=== PATIENT | female | born 1990 | race Caucasian/White ===

== ENCOUNTER 2018-05-26 09:48 | Emergency (ER) | payer OTHER ==
[2018-05-26 10:47] LABS: CONTROL LINE UCG INT CTR LINE PRESENT; URINE PREG TEST NEGATIVE (NEGATIVE)
[2018-05-26 10:50] LABS: AMORPHOUS SEDIMENT RFX SMALL (NEGATIVE); KETONE, URINE AUTO RFX NEGATIVE (NEGATIVE); LEUKOCYTE ESTERASE UR AUTO RFX NEGATIVE (NEGATIVE); MUCUS, URINE RFX SMALL (NEGATIVE); NITRITE, URINE AUTO RFX NEGATIVE (NEGATIVE); RBC, URINE AUTO RFX 3 /HPF (0-3); SPECIFIC GRAVITY UR AUTO RFX 1.013 (1.002-1.035); SQUAM EPITHELIAL CELL UR AURFX 2 /HPF (0-6); WBC, URINE AUTO RFX 2 /HPF (0-3)
[2018-05-26] MEDS: NS 1,000 ML IV (11:52)
[2018-05-26] MEDS: ONDANSETRON 4MG/2ML VIAL (J2405) IV (11:52)
[2018-05-26 12:03] LABS: BASO % 0.5 % (0.0-1.0); EOS # 0.3 10^3/uL (0.0-0.50); EOS % 3.4 % (0.0-3.0); HEMATOCRIT 33.3 % (36.0-47.0); HEMOGLOBIN 11.2 g/dl (12.0-15.5); IMMATURE GRANULOCYTE % 0.3 % (0-3.0); LYMPH # 2.4 10^3/uL (1.5-6.5); LYMPH % 31.9 % (24.0-44.0); MEAN CORPUSCULAR HEMOGLOBIN 32.2 pg (27.0-33.0); MEAN CORPUSCULAR HGB CONC 33.6 g/dl (32.0-36.5); MEAN CORPUSCULAR VOLUME 95.7 fl (80.0-96.0); MONO # 0.7 10^3/uL (0.0-0.8); MONO % 8.8 % (0.0-5.0); NEUTROPHILS # 4.1 10^3/uL (1.8-7.7); NEUTROPHILS % 55.1 % (36.0-66.0); PLATELET COUNT, AUTOMATED 256 10^3/uL (150-450); RED BLOOD COUNT 3.48 10^6/uL (4.00-5.40); RED CELL DISTRIBUTION WIDTH 11.5 % (11.5-14.5); WHITE BLOOD COUNT 7.4 10^3/uL (4.0-10.0)
[2018-05-26 12:25] LABS: AMYLASE 55 U/L (25-115); ANION GAP 9 MEQ/L (8-16); BLOOD UREA NITROGEN 12 MG/DL (7-18); CALCIUM LEVEL 8.9 MG/DL (8.5-10.1); CARBON DIOXIDE LEVEL 23 MEQ/L (21-32); CHLORIDE LEVEL 107 MEQ/L (98-107); CREATININE FOR GFR 0.63 MG/DL (0.55-1.30); GLOMERULAR FILTRATION RATE > 60.0 (>60); GLUCOSE, FASTING 79 MG/DL (70-100); LIPASE 90 U/L (73-393); SODIUM LEVEL 139 MEQ/L (136-145)
[2018-05-26] MEDS: METOCLOPRAMIDE INJ 10MG/2ML VIAL (J2765) IV (13:03)
[2018-05-26] MEDS: SODIUM CHLORIDE 0.9% INJ 10 ML SYR IV (14:00)
== END 2018-05-26 14:06 | disposition home or self-care (01) ==
LOC: M ED 09:48
DX: R11.0 Nausea (principal); K58.9 Irritable bowel syndrome, unspecified; J45.909 Unspecified asthma, uncomplicated; R51 Headache; K59.8 Other specified functional intestinal disorders; Z79.899 Other long term (current) drug therapy; Z88.5 Allergy status to narcotic agent; Z91.89 Other specified personal risk factors, not elsewhere classified; Z91.040 Latex allergy status
CPT/HCPCS: J2405

== ENCOUNTER 2019-04-04 21:28 | Outpatient (CLI) | payer OTHER ==
[~2019-04-04] VITALS: Ht 152.4 cm; Wt 56.8 kg
[~2019-04-04 21:28] MED LIST: ATEN25TA PO; BENA25CA4 PO; DULO1CAP6 PO; HYDR50TA70 PO; MECL-86 PO; MELA5TAB20 PO; PROM50TA4 PO; VENTAER INH; VITA500079 PO; ZOFR8TAB22 PO; [UNRECOGNIZED DRUG - OTHER]
[2019-04-04 21:34] VITALS: BP 131/85
[2019-04-04] MEDS ORDERED: PRAZ2CAP PO (22:12)
[2019-04-04] MEDS ORDERED: CYMB1CAP4 PO (22:13)
== END 2019-04-04 23:00 | disposition home or self-care (01) ==
LOC: M LDO 21:28
PROVIDERS: ATTEND Obstetrics & Gynecology
DX: O26.892 Other specified pregnancy related conditions, second trimester (principal); M54.5 Low back pain; Z3A.26 26 weeks gestation of pregnancy

== ENCOUNTER 2019-05-26 20:44 | Outpatient (CLI) | payer OTHER ==
[~2019-05-26 20:44] MED LIST changes: +CYMB1CAP4 PO; +PRAZ2CAP PO
[2019-05-26 21:34] VITALS: BP 104/62
== END 2019-05-26 21:45 | disposition home or self-care (01) ==
LOC: M LDO 20:44
PROVIDERS: ATTEND Obstetrics & Gynecology
DX: O26.893 Other specified pregnancy related conditions, third trimester (principal); Z88.5 Allergy status to narcotic agent; Z91.040 Latex allergy status; Z91.048 Other nonmedicinal substance allergy status; Z3A.34 34 weeks gestation of pregnancy

== ENCOUNTER 2019-06-04 16:32 | Outpatient (CLI) | payer OTHER ==
[~2019-06-04] VITALS: Ht 152.4 cm; Wt 59.0 kg
[2019-06-04 16:43] VITALS: BP 116/75
[2019-06-04] MEDS ORDERED: LR 1,000 ML IV SCH (17:02)
[2019-06-04] MEDS ORDERED: LACTATED RINGER'S 1000 ML IV STA (17:02)
[2019-06-04] MEDS ORDERED: ALIVTAB PO (17:17)
[2019-06-04 17:55] LABS: HEMATOCRIT 32.4 % (36.0-47.0); HEMOGLOBIN 10.7 g/dl (12.0-15.5); MEAN CORPUSCULAR HEMOGLOBIN 31.8 pg (27.0-33.0); MEAN CORPUSCULAR VOLUME 96.1 fl (80.0-96.0); PLATELET COUNT, AUTOMATED 168 10^3/uL (150-450); RED BLOOD COUNT 3.37 10^6/uL (4.00-5.40); WHITE BLOOD COUNT 8.8 10^3/uL (4.0-10.0)
[2019-06-04] MEDS ORDERED: SODIUM CHLORIDE 0.9% INJ 10 ML SYR IV PRN (18:00)
[2019-06-04 18:15] LABS: APPEARANCE, URINE CLOUDY (CLEAR); BACTERIA, URINE AUTO 2+ (NEGATIVE); BILIRUBIN, URINE AUTO NEGATIVE (NEGATIVE); BLOOD, URINE BLOOD 2+ (NEGATIVE); COLOR, URINE YELLOW (YELLOW); GLUCOSE, URINE (UA) AUTO NEGATIVE (NEGATIVE); KETONE, URINE AUTO NEGATIVE (NEGATIVE); LEUKOCYTE ESTERASE, URINE AUTO 3+ (NEGATIVE); MUCUS, URINE SMALL (NEGATIVE); NITRITE, URINE AUTO NEGATIVE (NEGATIVE); PROTEIN, URINE AUTO NEGATIVE (NEGATIVE); RBC, URINE AUTO 12 /HPF (0-3); SPECIFIC GRAVITY URINE AUTO 1.009 (1.002-1.035); SQUAMOUS EPITHELIAL CELL UR AU 7 /HPF (0-6); UROBILINOGEN, URINE AUTO 0.2 mg/dL (0.0-2.0); WBC, URINE AUTO 149 /HPF (0-3)
[2019-06-04] MEDS ORDERED: CYCLOBENZAPRINE 10 MG TAB PO ONE (21:00)
[2019-06-04] MEDS ORDERED: cefTRIAXone SOD 1 GM in D5W MINI-BAG PLUS 50 ML IV ONE (21:00)
--- NOTE | 2019-06-04 21:29 | IPN ---
DATE: 06/04/2019 A 29-year-old 1, para 0 at 35-1/7 weeks gestation, estimated date of confinement (EDC) 07/07/2019, presents by ambulance from [place] for constant lower abdominal pain and pressure. She feels these are contractions that have been occurring all day and have gotten more intense. She denies vaginal bleeding or loss of fluid. She was seen here for the same problem 8 days ago. She has been to at least five different hospitals during the course of this for various problems. She had previously completed a course of steroids within the last 2 weeks. OBJECTIVE: Blood pressure is 116/75, pulse 116, respiratory rate 20, afebrile. She appears mildly uncomfortable. Head and neck exam is normal. Lungs clear. Heart: Regular rate and rhythm. Abdomen: Nontender, gravid, soft. heart tones: Category 1. Contractions: Irregular, mild. Sterile vaginal exam: 1 cm, 50%, -2, anterior, vertex. No supervisor policy change clerks time. ASSESSMENT: A 29-year-old 1 at 35-1/7 weeks gestation with abdominal pain and occasional contractions. The patient is not in active labor. Plan to obtain bedside ultrasound to ensure there is no pathology, such as placental abruption, to account for patient's pain. Otherwise, I believe the pain is just related to pressure from the . There are no further issues. She could then be discharged to followup with her providers.
--- NOTE | 2019-06-04 23:41 | REPVR ---
PROCEDURE INFORMATION: Exam: US , Limited Exam date and time: 06/04/2019 11:03 PM Clinical history: 29 years old, female; Lmp or gestational age (in weeks): 35w2d; Labor and delivery abnormalities; Pre-term labor; Without delivery; ; Additional info: 35 weeks, R/O placetnal abruption TECHNIQUE: Imaging protocol: Real-time ultrasound of the maternal uterus with image documentation. Exam focused on the clinical indication. COMPARISON: No relevant prior studies available. FINDINGS: GESTATION: Gestation: Single intrauterine fetus. Heart rate: heartbeat of 141 beats per minute. Presentation: Cephalic presentation. Placenta: Anterior placenta with no evidence of abruption. Amniotic fluid: Normal MAGDY of 11.3 cm. MATERNAL: Other findings: S/D ratio is 2.6. IMPRESSION: 1. Single live intrauterine fetus in cephalic presentation. 2. Normal MAGDY of 11.3 cm. 3. Anterior placenta with no abruption. Electronically signed by: Bienvenido Walker On 06/04/2019 23:40:40 PM
[2019-06-05] MEDS ORDERED: SODIUM CHLORIDE 0.9% INJ 10 ML SYR IV SCH (09:00)
== END 2019-06-04 23:40 | disposition home or self-care (01) ==
LOC: M LDO 16:32
PROVIDERS: ATTEND Specialist
DX: O26.893 Other specified pregnancy related conditions, third trimester (principal); Z3A.35 35 weeks gestation of pregnancy
CPT/HCPCS: 59025; 76815; 81001; 85027; 87086; 96374; J0696

== ENCOUNTER 2019-06-05 19:02 | Outpatient (CLI) | payer OTHER ==
[~2019-06-05] VITALS: Ht 152.4 cm; Wt 58.9 kg
[~2019-06-05 19:02] MED LIST changes: +ALIVTAB PO
[2019-06-05 19:20] VITALS: BP 116/83
--- NOTE | 2019-06-05 23:25 | IPN ---
DATE: 06/05/2019 Niurka is a 29-year-old 1, para 0 at 35-3/7 weeks gestation, EDC of 07/07/2019. She presents for a report of mucus with a bright red streak of blood in it this afternoon. She denies any painful contractions or leakage of fluid. The fetus has been active. care is obtained in [place], the lives in [place]. Her course had complications related to heart murmur, irritable bowel syndrome (IBS) and with a planned section at 39 weeks. She has previously completed a course of steroids within the last 2 weeks and has been seen in multiple hospitals for multiple complaints. OBJECTIVE Temperature 99.3, pulse 94, respirations 18, BP is 126/86. She is alert and oriented times three. She does not appear to be in any discomfort. heart rate is 150 with moderate variability, positive accelerations, no decelerations. There is occasional contraction on the AFM. Speculum exam demonstrates no active vaginal bleeding. There is no bleeding at the cervical os and no bleeding on the face of the cervix. Sterile vaginal examination: 1, 70, - 3. ASSESSMENT Intrauterine at 35-3/7 weeks. heart rate category one. No vaginal bleeding. PLAN Discharge the patient home. I did review access to care, reviewed danger signs of bleeding during her . I reviewed signs and symptoms of active labor and movement counts and other danger signs. I did answer the patient and her 's questions. They are agreeable to this plan and will be discharged to home.
[2019-06-06] MEDS ORDERED: PERCOCET PO (21:32)
[2019-06-06] MEDS ORDERED: IBUP80TA PO (21:32)
== END 2019-06-05 19:50 | disposition home or self-care (01) ==
LOC: M LDO 19:02
PROVIDERS: ATTEND Advanced Practice Midwife
DX: O36.8130 Decreased fetal movements, third trimester, not applicable or unspecified (principal); Z3A.35 35 weeks gestation of pregnancy

== ENCOUNTER 2019-06-06 04:57 | Inpatient (IN) | payer OTHER ==
[~2019-06-06] VITALS: Ht 149.9 cm; Wt 61.0 kg
[2019-06-06] VITALS (7 sets, daily range): BP systolic 111–126; BP diastolic 68–83
[2019-06-06] MEDS ORDERED: LACTATED RINGER'S 1000 ML IV STA (05:38)
[2019-06-06] MEDS ORDERED: LR 1,000 ML IV SCH ×2 (05:38→08:00)
[2019-06-06] MEDS ORDERED: BICITRA 30ML SOLN UDC As Ordered ONE (05:42)
[2019-06-06] MEDS ORDERED: ceFAZolin 2 GM/D5W 50 ML IV BAG (J0690 PER 500MG) As Ordered ONE (05:42)
[2019-06-06] MEDS ORDERED: BICITRA 30ML SOLN UDC PO ONE (05:45)
[2019-06-06] MEDS ORDERED: ceFAZolin SOD 2 GM in IV 1 EA IV ONE (05:45)
[2019-06-06] MEDS ORDERED: BETAMETHASONE SOLUSPAN 6MG/ML INJ 5ML (J0702) IM ONE (05:45)
[2019-06-06] MEDS ORDERED: BETAMETHASONE SOLUSPAN 6MG/ML INJ 5ML (J0702) As Ordered ONE (05:50)
[2019-06-06] MEDS ORDERED: OXYTOCIN INJ 10 UNITS/ML VIAL (J2590) As Ordered ONE ×2 (06:19→07:00)
[2019-06-06] MEDS ORDERED: KETOROLAC 60 MG/2 ML VIAL (J1885) As Ordered ONE (06:19)
[2019-06-06] MEDS ORDERED: ONDANSETRON 4MG/2ML VIAL (J2405) As Ordered ONE (06:19)
[2019-06-06] MEDS ORDERED: MORPHINE PRES-FREE INJ 10 MG/10 ML VIAL (J2274) As Ordered ONE (06:19)
[2019-06-06] MEDS ORDERED: MIDAZOLAM INJ 2 MG/2 ML VIAL (J2250) As Ordered ONE (06:21)
[2019-06-06] MEDS ORDERED: AZITHROMYCIN INJ 500 MG, VIAL MATE ADAPTER 1 EACH in D5W 250 ML IV STA (06:26)
[2019-06-06] MEDS ORDERED: AZITHROMYCIN INJ 500MG VIAL (J0456) As Ordered ONE (06:28)
[2019-06-06 06:36] LABS: HEMATOCRIT 31.1 % (36.0-47.0); HEMOGLOBIN 9.9 g/dl (12.0-15.5); MEAN CORPUSCULAR HEMOGLOBIN 30.9 pg (27.0-33.0); MEAN CORPUSCULAR HGB CONC 31.8 g/dl (32.0-36.5); MEAN CORPUSCULAR VOLUME 97.2 fl (80.0-96.0); PLATELET COUNT, AUTOMATED 135 10^3/uL (150-450); WHITE BLOOD COUNT 10.1 10^3/uL (4.0-10.0)
[2019-06-06] MEDS ORDERED: NALOXONE INJ 0.4 MG/1 ML VIAL (J2310) IV PRN ×2 (06:50)
[2019-06-06] MEDS ORDERED: NALBUPHINE HCL 10 MG/ML AMP (J2300) IV PRN ×2 (06:50→08:15)
[2019-06-06] MEDS ORDERED: diphenhydrAMINE INJ 50MG/ML VIAL (J1200) IV PRN (06:50)
[2019-06-06] MEDS ORDERED: METOCLOPRAMIDE INJ 10MG/2ML VIAL (J2765) IV PRN (06:50)
[2019-06-06] MEDS ORDERED: ONDANSETRON 4MG/2ML VIAL (J2405) IV PRN ×3 (06:50→08:15)
[2019-06-06] MEDS ORDERED: dexameTHASONE 4 MG/ML 1ML VIAL (J1100) As Ordered ONE (06:54)
[2019-06-06] MEDS ORDERED: ESMOLOL INJ 100MG/10ML VIAL As Ordered ONE (07:14)
[2019-06-06 07:15] LABS: CORD GAS ABE V -7.6; CORD GAS HCO3 V 20.2 MEQ/L; CORD GAS O2 SAT V 43.9 %; CORD GAS PH V 7.224 UNITS; CORD GAS PO2 V 22.7 mmHg; CORD GAS SBC V 17.2 MEQ/L; CORD GAS TCO2 V 21.7 MEQ/L
[2019-06-06 07:17] LABS: CORD GAS ABE A -6.5; CORD GAS HCO3 A 23.2 MEQ/L; CORD GAS O2 SAT A 26.6 %; CORD GAS PCO2 A 65.7 mmHg; CORD GAS PH A 7.165 UNITS; CORD GAS PO2 A 16.4 mmHg; CORD GAS SBC A 17.7 MEQ/L; CORD GAS TCO2 A 25.2 MEQ/L
[2019-06-06 07:21] LABS: AMPHETAMINES URINE REFLEX NEGATIVE (NEGATIVE); BARBITURATES URINE REFLEX NEGATIVE (NEGATIVE); BENZODIAZEPINES URINE REFLEX NEGATIVE (NEGATIVE); CANNABINOIDS URINE REFLEX NEGATIVE (NEGATIVE); COCAINE METABOLITE URINE REFLE NEGATIVE (NEGATIVE); METHADONE URINE REFLEX NEGATIVE (NEGATIVE); OPIATES URINE REFLEX NEGATIVE (NEGATIVE); PHENCYCLIDINE URINE REFLEX NEGATIVE (NEGATIVE)
[2019-06-06] MEDS ORDERED: OXYTOCIN 30 UNITS IN 0.9% NaCl 500ML IV BAG (J2590) As Ordered ONE (07:41)
[2019-06-06] MEDS ORDERED: RHOGAM 300 MCG (1500 IU) INJ (J2790) IM SCH (08:00)
[2019-06-06] MEDS ORDERED: OXYTOCIN DRIP 30 UNITS in IV 1 EA IV SCH (08:00)
[2019-06-06] MEDS ORDERED: PERCOCET 5MG/325MG TAB PO PRN ×2 (08:00→09:00)
[2019-06-06] MEDS ORDERED: MOM 30ML SUSPENSION UDC PO PRN (08:00)
[2019-06-06] MEDS ORDERED: MEASLES,MUMPS,RUBELLA VACCINE INJ (MMR-II) (90707) SC SCH (08:00)
[2019-06-06] MEDS ORDERED: fentaNYL 100 MCG/2 ML INJECTION (J3010) IV PRN (08:15)
[2019-06-06] MEDS ORDERED: KETOROLAC 30 MG/ML VIAL (J1885) IV PRN (08:15)
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
[2019-06-06] MEDS: DOCUSATE SODIUM 100 MG CAP PO SCH ×2 (09:00→20:23)
[2019-06-06] MEDS: PRENATAL VITAMINS CHEWABLE TABLET PO SCH (09:00)
[2019-06-06] MEDS ORDERED: KETOROLAC 30 MG/ML VIAL (J1885) IV SCH (13:00)
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
[2019-06-06] MEDS ORDERED: PERCOCET PO (21:32)
[2019-06-06] MEDS ORDERED: IBUP80TA PO (21:32)
[2019-06-06] MEDS: IBUPROFEN 800 MG TAB PO SCH (22:58)
[2019-06-07 02:00] VITALS: BP 119/77
[2019-06-07 06:00] VITALS: BP 114/75
[2019-06-07] MEDS: IBUPROFEN 800 MG TAB PO SCH (06:27)
--- NOTE | 2019-06-07 07:25 | DS.PDOC ---
Discharge Summary General Date of Admission Jun 06, 2019 at 05:29 Date of Discharge 06/07/2019 Discharge Summary PROCEDURES PERFORMED DURING STAY: Primary section. ADMITTING DIAGNOSES: 1. premature rupture of membranes in labor DISCHARGE DIAGNOSES: 1. Primary section COMPLICATIONS/CHIEF COMPLAINT: LABOR with ruptured membranes and meconium stained fluid HISTORY OF PRESENT ILLNESS: 29 year old G1, unregistered patient. Received care in [place]. Presented via ambulance with reports of SROM @ 35w4d and onset of contractions. Planned performed by Dr Winn. at [place]. HOSPITAL COURSE: [facility]. DISCHARGE MEDICATIONS: Please see below. ALLERGIES: Please see below. PHYSICAL EXAMINATION ON DISCHARGE: VITAL SIGNS: Please see below. GENERAL: NAD. Reports adequate pain management with oral medications HEENT: WNL NECK: Supple CARDIOVASCULAR EXAMINATION: HRR, normotensive RESPIRATORY EXAMINATION: Unlabored, clear ABDOMINAL EXAMINATION: Fundus firm. Dressing intact with scant old drainage. + flatus EXTREMITIES: Equal strength and motion SKIN: Intact NEUROLOGICAL EXAMINATION: Grossly intact PSYCHIATRIC EXAMINATION: Appropriate LABORATORY DATA: Please see below. PROGNOSIS: Good. ACTIVITY: As tolerated. Pelvic rest DIET: As tolerated DISCHARGE PLAN: Home. DISPOSITION: Home. DISCHARGE INSTRUCTIONS: 1. Maintain dressing x 5 days. Pelvic rest. 2. Oral medications as ordered 3. RTO for wound check 2weeks and 6weeks. DISCHARGE CONDITION: Stable Vital Signs/I&Os Vital Signs Date Time Temp Pulse Resp B/P (MAP) Pulse Ox O2 Delivery O2 Flow Rate FiO2 06/07/19 06:00 97.5 96 18 114/75 (88) 98 I&O- Last 24 Hours up to 6 AM 06/07/19 05:59 Intake Total 2300 ml Output Total 3525 ml Balance -1225 ml Discharge Medications Scheduled Diphenhydramine HCl (Benadryl) 25 Mg Cap, 1 CAP PO QPM, (Reported) Duloxetine HCl (Cymbalta) 20 Mg Capsule.dr, 40 MG PO DAILY, (Reported) Duloxetine Hcl (Duloxetine HCl) 60 Mg Cap, 1 CAP PO DAILY, (Reported) Ondansetron (Zofran Odt) 8 Mg Tab, 1 TAB PO TID for nausea/vomiting, (Reported) place on top of the tongue where it will dissolve, then swallow Scheduled PRN Albuterol Sulfate (Ventolin Hfa) 108 Mcg/Act Aer, 2 PUFF INH Q4-6HP PRN for wheezing, (Reported) Ibuprofen (Ibuprofen) 800 Mg Tablet, 800 MG PO Q8H PRN for PAIN Oxycodone/Acetaminophen (Oxycodone-Acetaminophen 5-325) 1 Each Tablet, 1-2 TAB PO Q6HP PRN for MODERATE/SEVERE PAIN (PS 5-10) Miscellaneous Medications Multivit/Iron/FA/K/Herb No.244 (Alive [employer] Mv Tablet) 1 Each Tablet, 1 TAB PO, (Reported) Prazosin Hcl (Prazosin HCl) 2 Mg Capsule, 2 MG PO, (Reported) Allergies Coded Allergies: TAPE (Verified Allergy, Unknown, 06/06/19) latex (Verified Allergy, Unknown, 06/06/19) hydromorphone (Verified Adverse Reaction, Intermediate, projectile vomiting, 06/06/19) Danielle Smith CNM Jun 07, 2019 07:25
[2019-06-07 07:35] LABS: HEMATOCRIT 29.9 % (36.0-47.0); HEMOGLOBIN 9.8 g/dl (12.0-15.5); MEAN CORPUSCULAR HGB CONC 32.8 g/dl (32.0-36.5); MEAN CORPUSCULAR VOLUME 94.6 fl (80.0-96.0); PLATELET COUNT, AUTOMATED 201 10^3/uL (150-450); RED BLOOD COUNT 3.16 10^6/uL (4.00-5.40); WHITE BLOOD COUNT 17.6 10^3/uL (4.0-10.0)
[2019-06-07] MEDS: DOCUSATE SODIUM 100 MG CAP PO SCH (08:21)
[2019-06-07] MEDS: PRENATAL VITAMINS CHEWABLE TABLET PO SCH (08:21)
[2019-06-07] MEDS ORDERED: INFLUENZA QUADRIVALENT PF VACCINE 0.5ML SYRINGE (90686) IM ONE (09:00)
== END 2019-06-07 10:15 | disposition home or self-care (01) | DRG 540 ==
LOC: M LDO 04:57 → M LDI 05:29 → M OBS 09:59
PROVIDERS: ADMIT Advanced Practice Midwife; ATTEND Obstetrics & Gynecology
PROC: 10D00Z1 Extraction of Products of Conception, Low, Open Approach (ICD-10-PCS; principal; 2019-06-06 06:59)
DX: O42.013 Preterm premature rupture of membranes, onset of labor within 24 hours of rupture, third trimester (principal); Z3A.35 35 weeks gestation of pregnancy; O99.344 Other mental disorders complicating childbirth; F43.10 Post-traumatic stress disorder, unspecified; F41.9 Anxiety disorder, unspecified; Z62.810 Personal history of physical and sexual abuse in childhood; Z37.0 Single live birth; O99.02 Anemia complicating childbirth; D50.9 Iron deficiency anemia, unspecified

== ENCOUNTER 2019-10-10 12:51 | Emergency (ER) | payer OTHER ==
[~2019-10-10] VITALS: Ht 152.4 cm; Wt 51.3 kg
[~2019-10-10 12:51] MED LIST changes: +IBUP80TA PO; +PERCOCET PO
[2019-10-10] MEDS ORDERED: ACETAMINOPHEN TAB 650MG DOSE (2X325MG) PO ONE (16:00)
[2019-10-10 16:28] LABS: BASO % 0.3 % (0.0-1.0); EOS # 0.1 10^3/uL (0.0-0.5); EOS % 1.3 % (0.0-3.0); HEMATOCRIT 36.7 % (36.0-47.0); LYMPH # 2.4 10^3/uL (1.5-5.0); LYMPH % 39.1 % (24.0-44.0); MEAN CORPUSCULAR HEMOGLOBIN 32.4 pg (27.0-33.0); MEAN CORPUSCULAR HGB CONC 32.7 g/dl (32.0-36.5); MEAN CORPUSCULAR VOLUME 99.2 fl (80.0-96.0); MONO # 0.4 10^3/uL (0.0-0.8); MONO % 7.2 % (0.0-5.0); NEUTROPHILS # 3.2 10^3/uL (1.5-8.5); NEUTROPHILS % 51.8 % (36.0-66.0); PLATELET COUNT, AUTOMATED 248 10^3/uL (150-450); WHITE BLOOD COUNT 6.1 10^3/uL (4.0-10.0)
[2019-10-10 16:55] LABS: ALBUMIN 4.1 GM/DL (3.2-5.2); ALT/SGPT 52 U/L (12-78); BILIRUBIN,DIRECT < 0.1 MG/DL (0.0-0.2); BILIRUBIN,TOTAL 0.2 MG/DL (0.2-1.0); BLOOD UREA NITROGEN 12 MG/DL (7-18); CALCIUM LEVEL 8.8 MG/DL (8.5-10.1); CARBON DIOXIDE LEVEL 28 MEQ/L (21-32); CHLORIDE LEVEL 106 MEQ/L (98-107); CREATININE FOR GFR 0.58 MG/DL (0.55-1.30); GLOMERULAR FILTRATION RATE > 60.0 (>60); GLUCOSE, FASTING 83 MG/DL (70-100); LIPASE 109 U/L (73-393); SODIUM LEVEL 141 MEQ/L (136-145); TOTAL PROTEIN 7.5 GM/DL (6.4-8.2)
[2019-10-10 18:09] VITALS: BP 120/77
== END 2019-10-10 18:13 | disposition home or self-care (01) ==
LOC: M ED 12:51
DX: R31.29 Other microscopic hematuria (principal); F43.10 Post-traumatic stress disorder, unspecified; F41.9 Anxiety disorder, unspecified; F32.9 Major depressive disorder, single episode, unspecified; K58.9 Irritable bowel syndrome, unspecified; K21.9 Gastro-esophageal reflux disease without esophagitis; Z87.448 Personal history of other diseases of urinary system; Z79.899 Other long term (current) drug therapy; Z91.89 Other specified personal risk factors, not elsewhere classified; Z88.5 Allergy status to narcotic agent; Z91.040 Latex allergy status

== ENCOUNTER → 2019-11-07 | Outpatient (CLI) | payer OTHER, MEDICAID ==
[~2019-11-07] MED LIST changes: +EPIN0.3I11 IM; +ISOVUE-370 76% 100ML VIAL (Q9967) As Ordered ONE; +MIRT1TAB PO; +ONDA8TAB10 PO; +OXYC1TAB23 PO
--- NOTE | 2019-11-07 14:42 | REP ---
CT abdomen and pelvis without contrast: History: Gross hematuria. CT findings: Digital preliminary electronics installer radiograph demonstrates an Kzzbza-C-Zfnl catheter in place via the left subclavian vein, clips in right upper quadrant, and a large calcific opacity overlying the right psoas margin. Axial CT images demonstrate that the lung bases are clear. The liver and the spleen are normal size homogeneous in texture. Gallbladder surgically absent. No adrenal lesion is seen. No abnormalities noted in the pancreas. There is moderate to marked right-sided hydronephrosis due to the presence of a large proximal ureteral stone. This measures nine mm in greatest diameter. There is a tiny intrarenal calculus in the left mid kidney but no left-sided hydronephrosis. There are surgical clips in the right lower quadrant consistent with prior appendectomy. No bladder calculus is seen. No uterine or ovarian abnormality is observed. Small and large intestinal bowel loops are unremarkable. Impression: Large nine mm obstructing calculus in the right proximal ureter with moderate to marked right-sided hydronephrosis. Because of the above findings. The contrast portion of the examination was omitted at my direction. Electronically Signed by Chinedu Art MD 11/07/2019 02:34 P
== END ==
LOC: M RAD 12:46
PROVIDERS: ATTEND Nurse Practitioner Family
DX: R31.0 Gross hematuria (principal); N20.1 Calculus of ureter; N13.30 Unspecified hydronephrosis
CPT/HCPCS: 74176; J1642

== ENCOUNTER → 2019-11-07 | Outpatient (REF) | payer OTHER, MEDICAID ==
[~2019-11-07] MED LIST changes: -ISOVUE-370 76% 100ML VIAL (Q9967) As Ordered ONE
[2019-11-07 15:55] LABS: APPEARANCE, URINE HAZY (CLEAR); BILIRUBIN, URINE AUTO NEGATIVE (NEGATIVE); COLOR, URINE YELLOW (YELLOW); GLUCOSE, URINE (UA) AUTO NEGATIVE (NEGATIVE); KETONE, URINE AUTO NEGATIVE (NEGATIVE); NITRITE, URINE AUTO NEGATIVE (NEGATIVE); PROTEIN, URINE AUTO NEGATIVE (NEGATIVE); SPECIFIC GRAVITY URINE AUTO 1.014 (1.002-1.035); UROBILINOGEN, URINE AUTO 0.2 mg/dL (0.0-2.0)
[2019-11-07 15:56] LABS: BLOOD, URINE BLOOD 1+ (NEGATIVE); LEUKOCYTE ESTERASE, URINE AUTO TRACE (NEGATIVE); RBC, URINE AUTO 2 /HPF (0-3); SQUAMOUS EPITHELIAL CELL UR AU 2 /HPF (0-6); WBC, URINE AUTO 9 /HPF (0-3)
== END ==
LOC: M SMT 13:04
PROVIDERS: ATTEND Nurse Practitioner Family
DX: R31.0 Gross hematuria (principal)

== ENCOUNTER 2019-11-10 13:25 | Day surgery (SDC) | payer MEDICAID, OTHER ==
[~2019-11-10] VITALS: Ht 152.4 cm; Wt 53.6 kg
[~2019-11-10 13:25] MED LIST changes: -EPIN0.3I11 IM; -MIRT1TAB PO; -ONDA8TAB10 PO; -OXYC1TAB23 PO
[2019-11-10] MEDS ORDERED: MIRT1TAB PO (13:32)
[2019-11-10] MEDS ORDERED: EPIN0.3I11 IM (13:32)
[2019-11-10 14:44] LABS: BASO % 0.4 % (0.0-1.0); EOS # 0.1 10^3/uL (0.0-0.5); EOS % 1.3 % (0.0-3.0); HEMATOCRIT 39.6 % (36.0-47.0); LYMPH # 2.1 10^3/uL (1.5-5.0); LYMPH % 27.7 % (24.0-44.0); MEAN CORPUSCULAR HEMOGLOBIN 32.3 pg (27.0-33.0); MEAN CORPUSCULAR HGB CONC 32.8 g/dl (32.0-36.5); MEAN CORPUSCULAR VOLUME 98.3 fl (80.0-96.0); MONO # 0.6 10^3/uL (0.0-0.8); NEUTROPHILS # 4.8 10^3/uL (1.5-8.5); NEUTROPHILS % 62.3 % (36.0-66.0); PLATELET COUNT, AUTOMATED 249 10^3/uL (150-450); RED BLOOD COUNT 4.03 10^6/uL (4.00-5.40); WHITE BLOOD COUNT 7.7 10^3/uL (4.0-10.0)
[2019-11-10 15:09] LABS: ALBUMIN 4.2 GM/DL (3.2-5.2); ALT/SGPT 29 U/L (12-78); BILIRUBIN,DIRECT < 0.1 MG/DL (0.0-0.2); BILIRUBIN,TOTAL 0.3 MG/DL (0.2-1.0); BLOOD UREA NITROGEN 15 MG/DL (7-18); CARBON DIOXIDE LEVEL 24 MEQ/L (21-32); CHLORIDE LEVEL 108 MEQ/L (98-107); CREATININE FOR GFR 0.72 MG/DL (0.55-1.30); GLOMERULAR FILTRATION RATE > 60.0 (>60); GLUCOSE, FASTING 77 MG/DL (70-100); LIPASE 71 U/L (73-393); POTASSIUM SERUM 4.1 MEQ/L (3.5-5.1); SODIUM LEVEL 140 MEQ/L (136-145)
[2019-11-10] MEDS ORDERED: MORPHINE 4 MG/ML 1ML VIAL/SYRINGE (J2270) IV ONE (15:15)
[2019-11-10] MEDS ORDERED: diphenhydrAMINE 25 MG CAP PO ONE (15:15)
[2019-11-10] MEDS ORDERED: ONDANSETRON 4MG/2ML VIAL (J2405) IV ONE (15:45)
[2019-11-10] MEDS ORDERED: ONDANSETRON 4MG/2ML VIAL (J2405) As Ordered ONE ×3 (15:58→19:25)
[2019-11-10] MEDS ORDERED: ONDA8TAB10 PO (16:30)
[2019-11-10] MEDS ORDERED: OXYC1TAB23 PO (16:30)
[2019-11-10] MEDS ORDERED: CONRAY-60 60% 50ML VIAL (Q9961) As Ordered ONE (17:38)
[2019-11-10] MEDS ORDERED: LIDOCAINE 2% 5ML JELLY UROJET As Ordered ONE (17:44)
[2019-11-10] MEDS ORDERED: ceFAZolin 2 GM/D5W 50 ML IV BAG (J0690 PER 500MG) As Ordered ONE (18:06)
[2019-11-10] MEDS ORDERED: propofoL 200 MG/20 ML VIAL As Ordered ONE (18:23)
[2019-11-10] MEDS ORDERED: ROCURONIUM BROMIDE 50 MG/5 ML VIAL As Ordered ONE (18:23)
[2019-11-10] MEDS ORDERED: LIDOCAINE 2% INJ 100 MG/5 ML SDV (FOR ANES.) As Ordered ONE (18:23)
[2019-11-10] MEDS ORDERED: fentaNYL 100 MCG/2 ML INJECTION (J3010) As Ordered ONE ×2 (18:23→18:27)
[2019-11-10] MEDS ORDERED: dexameTHASONE 4 MG/ML 1ML VIAL (J1100) As Ordered ONE (18:23)
[2019-11-10] MEDS ORDERED: MIDAZOLAM INJ 2 MG/2 ML VIAL (J2250) As Ordered ONE (18:23)
[2019-11-10] MEDS ORDERED: SUGAMMADEX SODIUM 500 MG/5 ML VIAL (BRIDION) As Ordered ONE (18:34)
[2019-11-10] MEDS ORDERED: LACRILUBE (AKWA TEARS) OPHTH OINT 3.5 GM As Ordered ONE (18:40)
[2019-11-10] MEDS: oxyCODONE 5MG TAB PO PRN ×2 (19:40→20:17)
[2019-11-10] MEDS: fentaNYL 100 MCG/2 ML INJECTION (J3010) IV PRN ×4 (19:40→20:00)
[2019-11-10] MEDS ORDERED: ONDANSETRON 4MG/2ML VIAL (J2405) IV PRN (19:45)
[2019-11-10] MEDS ORDERED: METOCLOPRAMIDE INJ 10MG/2ML VIAL (J2765) IV PRN (19:45)
[2019-11-10] MEDS ORDERED: LR 1,000 ML IV SCH (19:45)
[2019-11-10] MEDS ORDERED: KETOROLAC 30 MG/ML VIAL (J1885) As Ordered ONE (19:53)
[2019-11-10 20:45] VITALS: BP 135/91
[2019-11-10] MEDS ORDERED: PERCOCET 5MG/325MG TAB PO PRN (20:45)
[2019-11-10 21:15] VITALS: BP 146/91
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
[2019-11-10 21:45] VITALS: BP 135/88
[2019-11-10] MEDS: SODIUM CHLORIDE 0.9% INJ 10 ML SYR IV PRN ×2 (22:05→23:41)
[2019-11-10 22:45] VITALS: BP 121/83
[2019-11-10] MEDS: ONDANSETRON 4MG/2ML VIAL (J2405) IV PRN (23:42)
[2019-11-10 23:45] VITALS: BP 142/91
[2019-11-11 00:45] VITALS: BP 125/82
[2019-11-11 01:45] VITALS: BP 126/89
[2019-11-11] MEDS: SODIUM CHLORIDE 0.9% INJ 10 ML SYR IV PRN ×3 (01:58→09:29)
[2019-11-11] MEDS: METOCLOPRAMIDE INJ 10MG/2ML VIAL (J2765) IV PRN ×2 (01:59→09:28)
[2019-11-11] MEDS: KETOROLAC 30 MG/ML VIAL (J1885) IV PRN ×2 (01:59→08:29)
[2019-11-11 05:10] VITALS: BP 121/86
--- NOTE | 2019-11-11 05:34 | REP ---
Clinical: Obstructive hydronephrosis. Technique: Retrograde pyelogram and stent placement. Technique: Real time intraoperative fluoroscopic imaging. Findings: Multiple images demonstrate moderate hydronephrosis with subsequent right ureteral stent placement in satisfactory position. Total fluoroscopic time 39 seconds. Impression: Moderate right hydronephrosis. Right stent placement. Electronically Signed by [place] MD 11/11/2019 05:25 A
[2019-11-11] MEDS: ONDANSETRON 4MG/2ML VIAL (J2405) IV PRN (06:50)
--- NOTE | 2019-11-11 08:21 | REP ---
REASON: History of right-sided renal calculus. COMPARISON: 11/07/2019. Lung bases are clear and unchanged. Once again, there is a proximal right ureteral calculus unchanged in position and size. Again this measures approximately 9 mm. There is mild resultant hydronephrosis which has actually improved compared to the prior exam. There is an unchanged 2 mm sized left intrarenal calculus not causing obstructive phenomenon. Surgical clips are again see in the right lower quadrant from previous appendectomy status quo. There is no significant changed in the appearance of the bowel loops or their mesenteries. Intra-abdominal organs are unchanged. The pancreas and adrenal glands are unchanged. Surgical clips are again seen in the gallbladder fossa from previous cholecystectomy. There is no changed in the imaged osseous structures. IMPRESSION: Slightly less right-sided hydronephrosis. The examination is otherwise unchanged as describe above. Electronically Signed by Jimmy Berumen DO 11/11/2019 01:30 P
--- NOTE | 2019-11-11 08:26 | REP ---
REASON: Omfsnq-L-Jdrz placement. An Hcjotc-J-Gmng catheter has been placed on the left the tip of which is in the superior vena cava. The lung rainey are clear and the heart is not enlarged. The osseous structures are normal. IMPRESSION: Lzjbaq-E-Ioov catheter as described above. Electronically Signed by Jimmy Berumen DO 11/11/2019 01:31 P
[2019-11-11 08:30] VITALS: BP 116/79
[2019-11-11] MEDS ORDERED: SODIUM CHLORIDE 0.9% INJ 10 ML SYR IV SCH (09:00)
--- NOTE | 2019-11-12 07:46 | RO ---
DATE OF PROCEDURE: 11/10/2019 PREOPERATIVE DIAGNOSIS: 9 mm right mid ureteral stone. POSTOPERATIVE DIAGNOSIS: 9 mm right mid ureteral stone. PROCEDURE: Cystoscopy, right ureteroscopy, right laser lithotripsy and right ureteral stent placement. SURGEON: Dr. Maggie Salazar ANESTHESIA: General. MEDICATIONS: Ancef 2 grams preoperatively. SPECIMEN: Stone fragments. FINDINGS: Small ureteral injury, but retrograde pyelogram was done to shows stenting good place. INDICATIONS FOR PROCEDURE: The patient is a 29-year-old female who was having severe right flank pain and had a CT scan done November 07, 2019 which showed a proximal right ureter ureteral stone measuring 9 mm. She was seen in our office and scheduled for surgery but the pain became unremitting despite pain medication. It was decided to bring her urgently to the operating room for stone management. All options, alternatives, risks and benefits were discussed and informed consent was obtained. The patient understood that we might not be able to get the stone completely and that further surgical procedures may need to be done in the future. PROCEDURE: The patient was brought into the operating room. Sequential compression devices and thromboembolic deterrent stockings (TEDS) were placed and anesthesia was induced. She was then placed in the lithotomy position and she was carefully prepped and draped in usual fashion. Next, a 21-Khmer cystoscope was inserted. The urethra was opened and upon entering the bladder both ureteral orifices were seen. There was no evidence of stones, erythematous patches, lesions or other abnormalities. At this point I attempted to place a right 0.35 guidewire up the right ureteral orifice but the wire would not go past the stone. At this point I put in a open-ended catheter over the wire and placed some contrast and then put a slurry of water and a little bit of lidocaine jelly, I then was able to pass the wire and this was left as a safety wire. Next, a rigid ureteroscope was placed and the stone was seen. It was quite impacted in the ureteral wall but I was able to blast it into small pieces and some of the fragments were removed by basket. There was a slight small ureteral disruption into the wall and fragments seen there, but I was able to place a stent and did another retrograde to make sure that it was in the correct position. The stent had a nice curl in the right upper pole of the kidney and down in the bladder. The patient's bladder was emptied and she was returned to recovery room in stable condition. She shall call the office to have the stent removed in 2 weeks.
== END 2019-11-11 11:15 | disposition home or self-care (01) ==
LOC: M ED 13:25 → M SDC 13:26 → M PED 20:45 → M SDC 11-11 11:15
PROVIDERS: ATTEND Specialist
DX: N20.1 Calculus of ureter (principal); J45.909 Unspecified asthma, uncomplicated; M79.7 Fibromyalgia; F32.9 Major depressive disorder, single episode, unspecified; F41.9 Anxiety disorder, unspecified; F43.10 Post-traumatic stress disorder, unspecified; K58.9 Irritable bowel syndrome, unspecified; K21.9 Gastro-esophageal reflux disease without esophagitis; D50.9 Iron deficiency anemia, unspecified; Z79.899 Other long term (current) drug therapy; Z88.5 Allergy status to narcotic agent; Z91.040 Latex allergy status; Z91.048 Other nonmedicinal substance allergy status
CPT/HCPCS: 36415; 52356; 71045; 74420; 80048; 80076; 81001; 82365; 83690; 84702; 85025; 88300; 96374; 96375; 96376; 99284; C1769; C2617; J0690; J1100; J1642; J1885; J2250; J2270; J2405; J2765; J3010; Q9961

== ENCOUNTER → 2020-01-06 | Outpatient (CLI) | payer OTHER ==
[~2020-01-06] MED LIST changes: +EPIN0.3I11 IM; +MIRT1TAB PO; +ONDA8TAB10 PO; +OXYC1TAB23 PO
--- NOTE | 2020-01-14 10:58 | REP ---
REPEAT DICTATION URINARY TRACT SONOGRAPHY: HISTORY: Kidney stones. History of right ureteral stone removal and stenting October 2019. Stent now removed. Persistent right flank pain. COMPARISON: CT study November 10, 2019. This study is acquired on January 06, 2020 and is presented to me for repeat dictation on January 14, 2020. SONOGRAPHIC FINDINGS: Scanning at the level urinary bladder demonstrates emptying ureteral jet visualization on the left but not the right during approximately 6 minutes of time stamp observation. Visualized bladder maynard are smooth. Renal cortical echogenicity pattern is normal and contours are smooth bilaterally. There is moderate right-sided hydronephrosis. AP dimension of the renal pelvis on the right is 19 mm. The proximal ureter is somewhat dilated to 7 mm. The right proximal ureter is not seen below the level of the lower pole of the right kidney. No intrarenal calculus is observed. The right kidney measures 10.3 x 6.1 x 4.0 cm. Left renal dimensions are 10.6 x 4,8 x 4.8 cm. There is no evidence of hydronephrosis of the left kidney. No mass or cyst is seen on either side. IMPRESSION: Moderate right-sided hydronephrosis and hydroureter. No stones seen. Electronically Signed by Chinedu Art MD 01/14/2020 12:33 P
== END ==
LOC: M RAD 12:58
PROVIDERS: ATTEND Urology
DX: N20.0 Calculus of kidney (principal)

== ENCOUNTER 2020-01-27 12:41 | Outpatient (CLI) | payer OTHER ==
[~2020-01-27 12:41] MED LIST changes: -CVS10CAP8 PO
[2020-01-27 13:13] LABS: HEMATOCRIT 36.5 % (36.0-47.0); HEMOGLOBIN 12.3 g/dl (12.0-15.5); MEAN CORPUSCULAR HEMOGLOBIN 31.9 pg (27.0-33.0); MEAN CORPUSCULAR HGB CONC 33.7 g/dl (32.0-36.5); MEAN CORPUSCULAR VOLUME 94.6 fl (80.0-96.0); PLATELET COUNT, AUTOMATED 261 10^3/uL (150-450); RED BLOOD COUNT 3.86 10^6/uL (4.00-5.40); WHITE BLOOD COUNT 6.5 10^3/uL (4.0-10.0)
[2020-01-27] MEDS ORDERED: SODIUM CHLORIDE 0.9% INJ 10 ML SYR IV PRN (13:30)
[2020-01-28] MEDS ORDERED: SODIUM CHLORIDE 0.9% INJ 10 ML SYR IV SCH (09:00)
== END 2020-01-27 13:15 | disposition home or self-care (01) ==
LOC: M LAB 12:41 → M INFU 12:41
PROVIDERS: ATTEND Nurse Practitioner Family
DX: Z01.818 Encounter for other preprocedural examination (principal); N20.2 Calculus of kidney with calculus of ureter

== ENCOUNTER → 2020-01-27 | Outpatient (CLI) | payer OTHER ==
[~2020-01-27] MED LIST changes: +ALBU83IN NEB; +CVS10CAP8 PO; +FAMO40TA3 PO; +MIRT1TAB16 PO; +MULTCAP PO; +PYRI25TA2 PO; +TOPA50TA8 PO
== END ==
LOC: M LABSMTC 11:29
PROVIDERS: ATTEND Anesthesiology
DX: Z01.818 Encounter for other preprocedural examination (principal); Z11.59 Encounter for screening for other viral diseases
CPT/HCPCS: C9803; U0003

== ENCOUNTER 2020-01-30 10:17 | Day surgery (SDC) | payer OTHER ==
[~2020-01-30] VITALS: Ht 152.4 cm; Wt 54.8 kg
[~2020-01-30 10:17] MED LIST changes: +LIDOCAINE 1% MDV 20ML VIAL SQ PRN
[2020-01-30] MEDS ORDERED: LR 1,000 ML IV ONE (10:45)
[2020-01-30] MEDS ORDERED: ceFAZolin SOD 2 GM in IV 1 EA IV ONE (10:45)
[2020-01-30] MEDS ORDERED: CVS10CAP8 PO (10:49)
[2020-01-30] MEDS ORDERED: SODIUM CHLORIDE 0.9% INJ 10 ML SYR IV PRN (11:15)
[2020-01-30] MEDS ORDERED: ONDANSETRON 4MG/2ML VIAL IV ONE (11:45)
[2020-01-30] MEDS ORDERED: fentaNYL 100 MCG/2 ML INJECTION (J3010) As Ordered ONE ×2 (11:56→13:20)
[2020-01-30] MEDS ORDERED: METOCLOPRAMIDE INJ 10MG/2ML VIAL (J2765 PER 1) As Ordered ONE (11:56)
[2020-01-30] MEDS ORDERED: ROCURONIUM BROMIDE 50 MG/5 ML VIAL As Ordered ONE (11:56)
[2020-01-30] MEDS ORDERED: propofoL 200 MG/20 ML VIAL As Ordered ONE (11:56)
[2020-01-30] MEDS ORDERED: MIDAZOLAM INJ 2MG/2ML VIAL (J2250 PER 1MG) As Ordered ONE (11:56)
[2020-01-30] MEDS ORDERED: LIDOCAINE 2% 100MG/5ML SDV (FOR ANES.) As Ordered ONE (11:56)
[2020-01-30] MEDS ORDERED: SCOPOLAMINE 1MG TRANSDERMAL PATCH TOP ONE (12:00)
[2020-01-30] MEDS ORDERED: HYDROmorphone HCL 2 MG/ML 1ML VIAL (J1170) As Ordered ONE (13:18)
[2020-01-30] MEDS ORDERED: ISOVUE-300 61% 50ML VIAL As Ordered ONE (13:36)
[2020-01-30] MEDS ORDERED: SUGAMMADEX SODIUM 500 MG/5 ML VIAL (BRIDION) As Ordered ONE (13:48)
--- NOTE | 2020-01-30 14:36 | REP ---
C-ARM VIEWS DURING RIGHT URETERAL STENT PLACEMENT: Three C-arm views performed. Contrast partially opacified a moderately dilated right pelvicaliceal system. There is placement of a right ureteral stent. The proximal end is coiled in the right renal pelvis and the distal end in the urinary bladder. 27 seconds of fluoroscopy time utilized. Electronically Signed by Jerome Haynes MD 01/30/2020 07:54 P
[2020-01-30] MEDS ORDERED: PERCOCET 5MG/325MG TAB PO PRN ×2 (14:45)
[2020-01-30] MEDS ORDERED: LR 1,000 ML IV SCH (14:45)
[2020-01-30] MEDS ORDERED: fentaNYL 100 MCG/2 ML INJECTION (J3010) IV PRN (14:45)
[2020-01-30 14:55] VITALS: BP 131/91
--- NOTE | 2020-02-04 16:13 | RO ---
DATE OF PROCEDURE: 01/30/2020 PREPROCEDURE DIAGNOSIS: Right ureteral stone. POSTPROCEDURE DIAGNOSIS: Right ureteral stone, right ureteral stricture. PROCEDURE: Cystoscopy, right ureteroscopy with laser lithotripsy and basket extraction of stone, right ureteral balloon dilation, right retrograde pyelogram with intraoperative interpretation of images, right ureteral stent placement. SURGEON: Jacob Verma MD SENIOR MARKETING DATA ANALYST: None. ANESTHESIA: General. OPERATIVE INDICATIONS: This is a 29-year-old female who was found to have what appeared to be an obstructing proximal right ureteral stone on CAT scan. She was brought to the operating room for treatment. DESCRIPTION OF PROCEDURE: The patient was brought to the operating room and general anesthesia was induced. Prophylactic antibiotics were infused. She was placed in dorsal lithotomy position, prepped and draped in the usual sterile fashion. A rigid cystoscope was inserted into the urethral meatus and advanced to the bladder. A guidewire was advanced up the right collecting system. A ureteral access sheath was advanced over the wire into the right collecting system. I went up the access sheath with a flexible ureteroscope and looked in the proximal ureter at a level just distal to the ureteropelvic junction. The ureter was extremely narrow. There was a very narrow stricture in this area. I ultimately pushed the scope through the stricture and into the renal pelvis. The stricture appeared to be at about 1.5 cm in length and the tissue appeared to be very fibrotic. There did appear to be a piece of stone fragment inside the wall of the ureter and this was released and broken up with a laser, and then the fragment was removed using a basket. Once that was done, I examined the entire kidney and of note it was very hydronephrotic. There were no stones inside the kidney. A retrograde pyelogram was performed and it was notable for severe right hydronephrosis but no extravasation. I then removed the ureteroscope and utilized a balloon dilator to dilate the stricture to 15 Greek. I left the balloon dilator inflated for at least a minute each time. After that I removed the balloon dilator and went back in with the ureteroscope and of note the area of the stricture did appear to be patent. At this point, I removed the ureteroscope along with the access sheath and no additional stones were seen within the ureter. I then utilized the wire to advance a 7-Greek x 22-32 cm JJ ureteral stent into the right collecting system. The wire was removed and there were adequate curls of the stent in the right renal pelvis and in the bladder. The bladder was emptied of all fluids and this marked conclusion of procedure. The patient was then taken out of dorsal lithotomy position, awakened from anesthesia and transported to the recovery room in stable condition. ESTIMATED BLOOD LOSS: 5mL. COMPLICATIONS: None. SPECIMENS: Kidney stone fragments. PLAN: I will leave the patient's stent in for approximately 3-4 weeks to allow time for the ureter to heal. I will then take the stent out and follow that with a renal ultrasound around 6 weeks later to check for stricture recurrence. Of note, I am concerned that she is at high risk for stricture recurrence. LAMONTE
== END 2020-01-30 15:53 | disposition home or self-care (01) ==
LOC: M SDC 10:17
PROVIDERS: ATTEND Urology
DX: N20.0 Calculus of kidney (principal); N13.5 Crossing vessel and stricture of ureter without hydronephrosis; J45.909 Unspecified asthma, uncomplicated; K21.9 Gastro-esophageal reflux disease without esophagitis; F32.9 Major depressive disorder, single episode, unspecified; F41.9 Anxiety disorder, unspecified; Z88.5 Allergy status to narcotic agent; Z91.040 Latex allergy status; Z79.899 Other long term (current) drug therapy; Z79.51 Long term (current) use of inhaled steroids
CPT/HCPCS: 52344; 52356; 74420; 81025; 82365; 88300; C1894; C2617; J0690; J1170; J1642; J2250; J2405; J2765; J3010; Q9967

== ENCOUNTER → 2020-08-13 | Outpatient (CLI) | payer OTHER ==
[~2020-08-13] MED LIST changes: +CVS10CAP8 PO; -LIDOCAINE 1% MDV 20ML VIAL SQ PRN
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
== END ==
LOC: M PAIN 11:30
PROVIDERS: ATTEND Family Medicine
DX: M79.7 Fibromyalgia (principal); J45.909 Unspecified asthma, uncomplicated; G47.00 Insomnia, unspecified; Z86.59 Personal history of other mental and behavioral disorders; Z88.8 Allergy status to other drugs, medicaments and biological substances; Z91.030 Bee allergy status; Z91.040 Latex allergy status; Z91.09 Other allergy status, other than to drugs and biological substances; Z79.899 Other long term (current) drug therapy

== ENCOUNTER → 2020-10-29 | Outpatient (CLI) | payer OTHER ==
--- NOTE | 2020-10-29 13:24 | REP ---
INDICATION: ANATOMY COMPARISON: None. TECHNIQUE: Transabdominal obstetrical ultrasound with color Doppler evaluation. FINDINGS: Examination demonstrates a single live intrauterine in breech presentation. motion is identified by technologist. Placenta is noted posterior and grade 0 with marginal placenta previa 14 mm from the closed internal os. Amniotic fluid volume is normal. Cervix measures 3.3 cm in length and appears closed.. Gestational age by LMP 20 weeks 1 day with YUSEF 03/17/2021. Gestational age by current measurements 18 weeks 6 days with YUSEF 03/26/2021. FHR equals 158 beats per minute. BPD: 3.9 cm at 17 weeks 6 days HC: 15.8 cm at 18 weeks 5 days AC: 12.5 cm at 18 weeks 1 day FL: 3.0 cm at 19 weeks 3 days HL: 3.0 cm at 20 weeks 0 days HC/AC: 1.26 Estimated weight 253 grams (less than 3rd percentile based on age by given EDC.) Anatomical assessment demonstrates normal structures including cranium, choroid plexus, cavum, cerebellum/posterior fossa, facial features, lungs, four-chamber heart/ventricular outflow tracts, diaphragm, stomach, cord insertion/three-vessel cord, kidneys/bladder, spine, and extremities. IMPRESSION: 1. Marginal placenta previa. 2. Estimated weight less than 3rd percentile based on age by given EDC. 3. Anatomical assessment is complete and normal. <Electronically signed by [place] > 10/29/20 [id number]
== END ==
LOC: M WHC 09:41
PROVIDERS: ATTEND Advanced Practice Midwife
DX: Z34.92 Encounter for supervision of normal pregnancy, unspecified, second trimester (principal); Z3A.20 20 weeks gestation of pregnancy

== ENCOUNTER → 2020-11-02 | Outpatient (CLI) | payer OTHER | LOC: M WHC 16:49 | PROVIDERS: ATTEND Obstetrics & Gynecology | DX: Z53.29 Procedure and treatment not carried out because of patient's decision for other reasons (principal); Z3A.20 20 weeks gestation of pregnancy ==

== ENCOUNTER → 2020-11-03 | Outpatient (REF) | payer OTHER | LOC: M SFHCWAGY 13:46 | PROVIDERS: ATTEND Obstetrics & Gynecology | DX: Z3A.20 20 weeks gestation of pregnancy (principal) ==

== ENCOUNTER → 2020-11-24 | Outpatient (CLI) | payer OTHER ==
--- NOTE | 2020-11-24 11:38 | REP ---
INDICATION: CK PLACENTA PLACEMENT,GROWTH COMPARISON: 10/29/2020 TECHNIQUE: Transabdominal obstetrical ultrasound with color Doppler evaluation. FINDINGS: Examination demonstrates a single live intrauterine in cephalic presentation. motion is identified by technologist. Marginal placenta is noted posterior and grade 1 approximately 10 mm from the closed internal os. Amniotic fluid volume is normal. Cervix measures 4.2 cm in length and appears closed.. Gestational age by LMP and 1st U/S 23 weeks 6 days with YUSEF 03/17/2021. Gestational age by current measurements 22 weeks 4 days with YUSEF 03/26/2021. FHR equals 167 beats per minute. Estimated weight 566 grams (15thpercentile). IMPRESSION: Marginal placenta previa again noted approximately 11 mm from the closed internal os. head has a mild dolichocephalic contour which may warrant follow-up <Electronically signed by [place] > 11/24/20 [id number]
== END ==
LOC: M WHC 10:35
PROVIDERS: ATTEND Obstetrics & Gynecology
DX: Z34.92 Encounter for supervision of normal pregnancy, unspecified, second trimester (principal); Z3A.23 23 weeks gestation of pregnancy

== ENCOUNTER → 2020-12-18 | Outpatient (CLI) | payer OTHER | LOC: M PAIN 11:30 | PROVIDERS: ATTEND Family Medicine | DX: Z53.29 Procedure and treatment not carried out because of patient's decision for other reasons (principal) ==

== ENCOUNTER 2021-01-18 17:17 | Outpatient (CLI) | payer OTHER ==
[~2021-01-18] VITALS: Ht 152.4 cm; Wt 63.5 kg
[~2021-01-18 17:17] MED LIST changes: -CVS10CAP8 PO; +MELA10CA6 PO
[2021-01-18 17:34] VITALS: BP 117/78
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
[2021-01-18 18:55] VITALS: BP 117/72
--- NOTE | 2021-01-18 18:57 | REP ---
INDICATION: cervical length, history of labor COMPARISON: 12/24/2020 TECHNIQUE: Limited transabdominal obstetrical ultrasound with color Doppler evaluation. FINDINGS: Examination demonstrates a single live intrauterine in cephalic presentation. motion is identified by technologist. Placenta is noted posterior/left lateral and grade 1 without evidence for placenta previa or abruption. Amniotic fluid volume is normal. Cervix measures 3.0 cm in length and appears closed. MAGDY: 15.5 cm. Gestational age by 1st ultrasound 31 weeks 5 days with YUSEF 03/17/2021. FHR equals 168 beats per minute. IMPRESSION: Normal cervix measuring 3 cm in length. <Electronically signed by [place] > 01/18/21 [id number]
[2021-01-18 19:28] LABS: APPEARANCE, URINE CLOUDY (CLEAR); BACTERIA, URINE AUTO 2+ (NEGATIVE); BILIRUBIN, URINE AUTO NEGATIVE (NEGATIVE); BLOOD, URINE BLOOD NEGATIVE (NEGATIVE); COLOR, URINE YELLOW (YELLOW); GLUCOSE, URINE (UA) AUTO NEGATIVE (NEGATIVE); KETONE, URINE AUTO NEGATIVE (NEGATIVE); LEUKOCYTE ESTERASE, URINE AUTO 3+ (NEGATIVE); MUCUS, URINE SMALL (NEGATIVE); NITRITE, URINE AUTO NEGATIVE (NEGATIVE); PROTEIN, URINE AUTO NEGATIVE (NEGATIVE); RBC, URINE AUTO 1 /HPF (0-3); SQUAMOUS EPITHELIAL CELL UR AU 16 /HPF (0-6); UROBILINOGEN, URINE AUTO 0.2 mg/dL (0.0-2.0); WBC, URINE AUTO 32 /HPF (0-3)
[2021-01-18] MEDS ORDERED: CEPH500C PO (19:43)
== END 2021-01-18 19:43 | disposition home or self-care (01) ==
LOC: M LDO 17:17
PROVIDERS: ATTEND Advanced Practice Midwife
DX: O36.8130 Decreased fetal movements, third trimester, not applicable or unspecified (principal); Z3A.31 31 weeks gestation of pregnancy

== ENCOUNTER → 2021-01-20 | Outpatient (CLI) | payer OTHER ==
[~2021-01-20] MED LIST changes: +CEPH500C PO; +MULT-90 PO; +ZOFR4TAB16 PO
--- NOTE | 2021-01-20 12:28 | REP ---
INDICATION: SIZE/DATE DISCREPANCY/GROWTH COMPARISON: 12/24/2020 TECHNIQUE: Transabdominal obstetrical ultrasound with color Doppler evaluation. FINDINGS: Examination demonstrates a single live intrauterine in cephalic presentation. motion is identified by technologist. Placenta is noted posterior and grade 1 without evidence for placenta previa or abruption. Amniotic fluid volume is normal. Cervix measures 3.1 cm in length and appears closed.. Gestational age by known YUSEF of 03/24/2021 at 31 weeks 0 days Gestational age by current measurements 31 weeks 3 days with YUSEF 03/21/2021. FHR equals 153 beats per minute. BPD: 7.9 cm at 31 weeks 4 days HC: 28.6 cm at 31 weeks 3 days AC: 27.5 cm at 31 weeks 4 days FL: 6.0 cm at 31 weeks 3 days HL: 5.3 cm at 31 weeks 1 day HC/AC: 1.04 Estimated weight 1781 grams (55thpercentile). MAGDY: 15.6 cm Umbilical artery SD ratio: 2.60, 2.42 (1.90-3.98) IMPRESSION: Single live intrauterine in cephalic presentation demonstrating appropriate estimated weight and growth. <Electronically signed by [place] > 01/20/21 1037
== END ==
LOC: M WHC 10:43
PROVIDERS: ATTEND Obstetrics & Gynecology
DX: O34.211 Maternal care for low transverse scar from previous cesarean delivery (principal)

== ENCOUNTER 2021-01-22 14:45 | Outpatient (CLI) | payer OTHER ==
[~2021-01-22] VITALS: Ht 152.4 cm; Wt 63.0 kg
[~2021-01-22 14:45] MED LIST changes: -MULT-90 PO; -ZOFR4TAB16 PO
[2021-01-22 16:35] LABS: APPEARANCE, URINE CLOUDY (CLEAR); BACTERIA, URINE AUTO NEGATIVE (NEGATIVE); BILIRUBIN, URINE AUTO NEGATIVE (NEGATIVE); BLOOD, URINE BLOOD NEGATIVE (NEGATIVE); CALCIUM OXALATE CRYSTALS SMALL; COLOR, URINE YELLOW (YELLOW); GLUCOSE, URINE (UA) AUTO NEGATIVE (NEGATIVE); KETONE, URINE AUTO NEGATIVE (NEGATIVE); LEUKOCYTE ESTERASE, URINE AUTO 2+ (NEGATIVE); MUCUS, URINE SMALL (NEGATIVE); NITRITE, URINE AUTO NEGATIVE (NEGATIVE); PROTEIN, URINE AUTO 1+ mg/dL (NEGATIVE); RBC, URINE AUTO 1 /HPF (0-3); SPECIFIC GRAVITY URINE AUTO 1.021 (1.002-1.035); SQUAMOUS EPITHELIAL CELL UR AU 16 /HPF (0-6); WBC, URINE AUTO 23 /HPF (0-3)
[2021-01-22] MEDS ORDERED: ZOFR4TAB16 PO (18:03)
[2021-01-22] MEDS ORDERED: MULT-90 PO (18:03)
--- NOTE | 2021-01-22 18:06 | IPNPDOC ---
Text Note Date of Service The patient was seen on 01/22/21. NOTE Outpatient 30yo YUSEF 03/17/2021. Presents @ [id number] with reports of contractions and pelvic discomfort. Denies LOF, bleeding. Reports fetus has not been as active as usual. Reports currently being treted for UTI with Keflex. Denies missing any doses other than today at 2pm. Hx significant for previous with PPROM and primary . Currently on [place] this . Mild uterine irritability noted Cat I tracing, fetus is very active. UA shows continued evidence infection despite antibiotic treatment. FFN is negative. Cervix LTC, -2 Discharged home. Enc increased fluids. Ordered AMELIA urine for 2 days post abx completion. RTO prn Danielle Smith CNM January 22, 2021 18:05
== END 2021-01-22 18:20 | disposition home or self-care (01) ==
LOC: M LDO 14:45
PROVIDERS: ATTEND Advanced Practice Midwife
DX: O26.893 Other specified pregnancy related conditions, third trimester (principal); Z3A.32 32 weeks gestation of pregnancy; R10.2 Pelvic and perineal pain; O34.211 Maternal care for low transverse scar from previous cesarean delivery; Z88.8 Allergy status to other drugs, medicaments and biological substances; Z91.030 Bee allergy status; Z91.040 Latex allergy status

== ENCOUNTER 2021-01-26 12:18 | Outpatient (CLI) | payer OTHER ==
[2021-01-26] VITALS (9 sets, daily range): BP systolic 103–132; BP diastolic 55–85
[~2021-01-26] VITALS: Ht 152.4 cm; Wt 63.2 kg
[~2021-01-26 12:18] MED LIST changes: +MULT-90 PO; +ZOFR4TAB16 PO
[2021-01-26] MEDS ORDERED: LACTATED RINGER'S 1000 ML IV STA (12:55)
[2021-01-26] MEDS ORDERED: EMLA CREAM 5GM TUBE (LIDOCAINE/PRILOCAINE) TOP ONE (13:30)
[2021-01-26] MEDS ORDERED: TERBUTALINE SULFATE 1 MG/ML VIAL (J3105) SC STA (15:13)
[2021-01-26] MEDS ORDERED: BETAMETHASONE SOLUSPAN 6MG/ML 5ML VIAL (J0702 PER 3MG) IM ONE (15:15)
[2021-01-26] MEDS: LR 1,000 ML IV SCH ×2 (15:30→22:07)
[2021-01-26] MEDS ORDERED: ONDANSETRON 4MG/2ML VIAL IV ONE (16:40)
[2021-01-26] MEDS ORDERED: ONDANSETRON 4MG/2ML VIAL IV PRN (19:50)
[2021-01-26] MEDS: ACETAMINOPHEN 500 MG TAB PO PRN (20:03)
[2021-01-26 20:22] LABS: HEMATOCRIT 32.8 % (36.0-47.0); HEMOGLOBIN 10.8 g/dl (12.0-15.5); MEAN CORPUSCULAR HEMOGLOBIN 31.5 pg (27.0-33.0); MEAN CORPUSCULAR HGB CONC 32.9 g/dl (32.0-36.5); MEAN CORPUSCULAR VOLUME 95.6 fl (80.0-96.0); PLATELET COUNT, AUTOMATED 219 10^3/uL (150-450); RED BLOOD COUNT 3.43 10^6/uL (4.00-5.40)
[2021-01-26] MEDS ORDERED: FAMOTIDINE 20 MG TAB PO SCH (21:00)
[2021-01-26] MEDS ORDERED: DULoxetine 30 MG CAP (CYMBALTA) PO SCH (21:00)
[2021-01-26] MEDS ORDERED: BUTORPHANOL 2 MG/ML INJ (J0595) IV ONE (21:45)
[2021-01-26] MEDS ORDERED: PROMETHAZINE INJ 25 MG/ML VIAL (J2550) IV ONE (21:45)
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
[2021-01-27 00:18] VITALS: BP 127/69
[2021-01-27 01:35] VITALS: BP 106/59
[2021-01-27] MEDS: ACETAMINOPHEN 500 MG TAB PO PRN (02:00)
[2021-01-27 02:36] VITALS: BP 90/53
[2021-01-27] MEDS ORDERED: CYMB60CA3 PO (03:46)
[2021-01-27 05:06] VITALS: BP 97/53
[2021-01-27] MEDS: LR 1,000 ML IV SCH (05:07)
[2021-01-27] MEDS ORDERED: FAMOTIDINE 20 MG TAB PO SCH (09:00)
[2021-01-27] MEDS ORDERED: BETAMETHASONE SOLUSPAN 6MG/ML 5ML VIAL (J0702 PER 3MG) IM ONE (09:00)
[2021-01-27 09:29] VITALS: BP 112/58
[2021-01-27] MEDS ORDERED: CEPHALEXIN 500 MG CAP PO SCH (12:00)
== END 2021-01-27 09:22 | disposition home or self-care (01) ==
LOC: M LDO 12:18
PROVIDERS: ATTEND Specialist
DX: O47.03 False labor before 37 completed weeks of gestation, third trimester (principal); Z3A.32 32 weeks gestation of pregnancy; Z87.51 Personal history of pre-term labor; O34.211 Maternal care for low transverse scar from previous cesarean delivery; O99.613 Diseases of the digestive system complicating pregnancy, third trimester; K52.9 Noninfective gastroenteritis and colitis, unspecified; O99.343 Other mental disorders complicating pregnancy, third trimester; F43.10 Post-traumatic stress disorder, unspecified; O26.893 Other specified pregnancy related conditions, third trimester; M79.7 Fibromyalgia; Z87.442 Personal history of urinary calculi; F41.9 Anxiety disorder, unspecified; Z79.899 Other long term (current) drug therapy; Z91.040 Latex allergy status; Z88.8 Allergy status to other drugs, medicaments and biological substances; Z91.030 Bee allergy status
CPT/HCPCS: 36415; 59025; 81001; 85027; 87086; J0595; J0702; J1642; J2405; J3105

== ENCOUNTER 2021-02-05 02:51 | Outpatient (CLI) | payer OTHER ==
[~2021-02-05] VITALS: Ht 152.4 cm; Wt 62.8 kg
[~2021-02-05 02:51] MED LIST changes: +CYMB60CA3 PO
[2021-02-05 03:30] VITALS: BP 102/65
[2021-02-05] MEDS ORDERED: MAKE275I SC (03:50)
[2021-02-05] MEDS ORDERED: ACET500P3 PO (03:50)
[2021-02-05] MEDS ORDERED: LR 1,000 ML IV ONE (04:15)
[2021-02-05] MEDS ORDERED: LR 1,000 ML IV SCH (04:15)
[2021-02-05 05:19] LABS: HEMATOCRIT 33.6 % (36.0-47.0); HEMOGLOBIN 10.9 g/dl (12.0-15.5); MEAN CORPUSCULAR HEMOGLOBIN 30.8 pg (27.0-33.0); MEAN CORPUSCULAR HGB CONC 32.4 g/dl (32.0-36.5); MEAN CORPUSCULAR VOLUME 94.9 fl (80.0-96.0); PLATELET COUNT, AUTOMATED 249 10^3/uL (150-450); RED BLOOD COUNT 3.54 10^6/uL (4.00-5.40); WHITE BLOOD COUNT 9.7 10^3/uL (4.0-10.0)
[2021-02-05 06:32] LABS: APPEARANCE, URINE CLEAR (CLEAR); BACTERIA, URINE AUTO 1+ (NEGATIVE); BILIRUBIN, URINE AUTO NEGATIVE (NEGATIVE); BLOOD, URINE BLOOD NEGATIVE (NEGATIVE); COLOR, URINE STRAW (YELLOW); GLUCOSE, URINE (UA) AUTO NEGATIVE (NEGATIVE); KETONE, URINE AUTO NEGATIVE (NEGATIVE); LEUKOCYTE ESTERASE, URINE AUTO NEGATIVE (NEGATIVE); NITRITE, URINE AUTO NEGATIVE (NEGATIVE); PROTEIN, URINE AUTO NEGATIVE (NEGATIVE); RBC, URINE AUTO 0 /HPF (0-3); SPECIFIC GRAVITY URINE AUTO 1.004 (1.002-1.035); SQUAMOUS EPITHELIAL CELL UR AU 1 /HPF (0-6); UROBILINOGEN, URINE AUTO 0.2 mg/dL (0.0-2.0); WBC, URINE AUTO 0 /HPF (0-3)
--- NOTE | 2021-02-05 07:54 | IPNPDOC ---
Text Note Date of Service The patient was seen on 02/05/21. NOTE Labor and Delivery Triage Note: S: 22-year-old 2 para 1 at 34 weeks 5 days estimated gestational presents with c/o contractions q5mins and pelvic pressure. Denies vaginal bleeding or LOF. Reports active movement. O: vss, AF no ctx Cat 1 tracing, with irregular contractions Gen: well appearing, NAD Abd: gravid, soft, nttp cx: Fingertip/50%/-3 A/P: 30-year-old 2 para 1 at 34 weeks 5 days with contractions, not in PTL reassuring status -Patient for reexamination in 2-3 hours. She declined. -home with PTL precautions and FKCs. -f/u at next OB appt Sylvia Winn MD VS,Cookie, I+O VSCookie I+O Laboratory Tests 02/05/21 04:31 Vital Signs Date Time Temp Pulse Resp B/P (MAP) Pulse Ox O2 Delivery O2 Flow Rate FiO2 02/05/21 03:30 98.5 106 18 102/65 (77) SYLVIA WINN MD. Feb 05, 2021 07:54
== END 2021-02-05 07:00 | disposition home or self-care (01) ==
LOC: M LDO 02:51
PROVIDERS: ATTEND Obstetrics & Gynecology
DX: O47.03 False labor before 37 completed weeks of gestation, third trimester (principal); Z3A.34 34 weeks gestation of pregnancy; Z91.030 Bee allergy status; Z91.040 Latex allergy status; Z88.8 Allergy status to other drugs, medicaments and biological substances

== ENCOUNTER 2021-02-07 18:06 | Outpatient (CLI) | payer OTHER ==
[~2021-02-07] VITALS: Ht 152.4 cm; Wt 62.3 kg
[~2021-02-07 18:06] MED LIST changes: +ACET500P3 PO; +MAKE275I SC
[2021-02-07 18:21] VITALS: BP 107/69
--- NOTE | 2021-02-07 19:03 | IPNPDOC ---
Text Note Date of Service The patient was seen on 02/07/21. NOTE Triage Note Niurka is a 30yo with SIUP at 34w4d presenting for regular, painful ctx. She states she has been having uncomfortable ctx "for weeks" but "the pressure is new". No LOF. No VB. Good movement. Vitals wnl afebrile Gen: WDWN, resting in bed comfortably Abdomen soft, gravid, NTTP SCE: ft/50/-3 Cat I FHRT with +accels, -decels, mod jaret [place]: no ctx pattern Patient not in labor. Discussed return precautions Keep next appt on 02/11 Safe for d/c home Irlanda De La Rosa MD VS,Cookie I+O VSCookie I+O Vital Signs Date Time Temp Pulse Resp B/P (MAP) Pulse Ox O2 Delivery O2 Flow Rate FiO2 02/07/21 18:21 97.5 108 16 107/69 (82) Room Air Irlanda De La Rosa MD Feb 07, 2021 19:03
== END 2021-02-07 18:57 | disposition home or self-care (01) ==
LOC: M LDO 18:06
PROVIDERS: ATTEND Obstetrics & Gynecology
DX: O47.03 False labor before 37 completed weeks of gestation, third trimester (principal); Z3A.34 34 weeks gestation of pregnancy; Z91.030 Bee allergy status; Z91.040 Latex allergy status; Z88.8 Allergy status to other drugs, medicaments and biological substances

== ENCOUNTER 2021-02-10 12:57 | Outpatient (CLI) | payer OTHER ==
[~2021-02-10] VITALS: Ht 152.4 cm; Wt 62.8 kg
[2021-02-10 13:10] VITALS: BP 91/61
[2021-02-10 13:47] VITALS: BP 116/76
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
== END 2021-02-10 14:16 | disposition home or self-care (01) ==
LOC: M LDO 12:57
PROVIDERS: ATTEND Advanced Practice Midwife
DX: O47.02 False labor before 37 completed weeks of gestation, second trimester (principal); Z3A.35 35 weeks gestation of pregnancy; Z79.899 Other long term (current) drug therapy; O34.211 Maternal care for low transverse scar from previous cesarean delivery; O99.343 Other mental disorders complicating pregnancy, third trimester; F43.10 Post-traumatic stress disorder, unspecified; F32.9 Major depressive disorder, single episode, unspecified; F41.9 Anxiety disorder, unspecified; O99.353 Diseases of the nervous system complicating pregnancy, third trimester; G47.00 Insomnia, unspecified; O99.513 Diseases of the respiratory system complicating pregnancy, third trimester; J45.909 Unspecified asthma, uncomplicated; O99.613 Diseases of the digestive system complicating pregnancy, third trimester; K58.9 Irritable bowel syndrome, unspecified; K55.9 Vascular disorder of intestine, unspecified; K21.9 Gastro-esophageal reflux disease without esophagitis; O26.893 Other specified pregnancy related conditions, third trimester; M79.7 Fibromyalgia; R10.9 Unspecified abdominal pain; Z87.51 Personal history of pre-term labor; Z91.410 Personal history of adult physical and sexual abuse; Z87.442 Personal history of urinary calculi; Z90.49 Acquired absence of other specified parts of digestive tract; Z88.8 Allergy status to other drugs, medicaments and biological substances; Z91.040 Latex allergy status; Z91.030 Bee allergy status

== ENCOUNTER 2021-02-17 18:45 | Outpatient (CLI) | payer OTHER ==
[~2021-02-17] VITALS: Ht 152.4 cm; Wt 63.6 kg
[2021-02-17 18:56] VITALS: BP 118/67
[2021-02-17] MEDS ORDERED: LACTATED RINGER'S 1000 ML IV ONE (19:15)
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
[2021-02-24] MEDS ORDERED: ACET325C5 PO (07:26)
== END 2021-02-17 22:30 | disposition home or self-care (01) ==
LOC: M LDO 18:45
PROVIDERS: ATTEND Advanced Practice Midwife
DX: O47.02 False labor before 37 completed weeks of gestation, second trimester (principal); Z3A.36 36 weeks gestation of pregnancy; O34.211 Maternal care for low transverse scar from previous cesarean delivery; Z87.51 Personal history of pre-term labor; O99.013 Anemia complicating pregnancy, third trimester; D64.9 Anemia, unspecified; O99.613 Diseases of the digestive system complicating pregnancy, third trimester; K58.9 Irritable bowel syndrome, unspecified; O26.893 Other specified pregnancy related conditions, third trimester; M79.7 Fibromyalgia; O99.343 Other mental disorders complicating pregnancy, third trimester; F43.10 Post-traumatic stress disorder, unspecified

== ENCOUNTER 2021-02-20 17:17 | Outpatient (CLI) | payer OTHER ==
[~2021-02-20] VITALS: Ht 152.4 cm; Wt 63.7 kg
--- NOTE | 2021-02-20 18:52 | IPNPDOC ---
Text Note Date of Service The patient was seen on 02/20/21. NOTE S; 31 yo at 36 3/7 weeks presents with constant low pelvic pressure. She had a green discharge. She has chest discomfort, with difficulty breathing. She has trouble sleeping. O: AVSS O2 sat.=98% RA Gen: NAD HEENT: WNL Lungs: CTA CVS: RRR Abd: NT, gravid, soft FHT: Category I toco: none SVE: 1 cm/50%/-2 moderate, physiologic discharge ext: NT A/P 31 yo at 36 3/7 weeks with pelvic pressure, dyspnea of PT reassured Not evidence of labor fu office Monday GRETA SHORT MD Feb 20, 2021 18:52
[2021-02-24] MEDS ORDERED: ACET325C5 PO (07:26)
== END 2021-02-20 19:00 | disposition home or self-care (01) ==
LOC: M LDO 17:17
PROVIDERS: ATTEND Specialist
DX: O26.893 Other specified pregnancy related conditions, third trimester (principal); N89.8 Other specified noninflammatory disorders of vagina; Z3A.36 36 weeks gestation of pregnancy; O99.513 Diseases of the respiratory system complicating pregnancy, third trimester; R06.00 Dyspnea, unspecified; Z91.040 Latex allergy status; Z91.030 Bee allergy status; Z88.8 Allergy status to other drugs, medicaments and biological substances; Z79.899 Other long term (current) drug therapy

== ENCOUNTER 2021-02-22 23:06 | Outpatient (CLI) | payer OTHER ==
[~2021-02-22] VITALS: Ht 152.4 cm; Wt 63.4 kg
[2021-02-22 23:26] VITALS: BP 110/85
[2021-02-22] MEDS ORDERED: PROMETHAZINE INJ 25 MG/ML VIAL (J2550) IV ONE (23:50)
[2021-02-22] MEDS ORDERED: BUTORPHANOL 2 MG/ML INJ (J0595) IV ONE (23:50)
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
[2021-02-23 00:58] VITALS: BP 92/59
[2021-02-23 02:16] VITALS: BP 121/61
[2021-02-23 03:43] VITALS: BP 95/62
[2021-02-23 04:38] VITALS: BP 95/54
[2021-02-23 06:28] VITALS: BP 98/56
[2021-02-23] MEDS ORDERED: DULO1CAP6 PO (14:18)
[2021-02-24] MEDS ORDERED: ACET325C5 PO (07:26)
== END 2021-02-23 06:40 | disposition home or self-care (01) ==
LOC: M LDO 23:06
PROVIDERS: ATTEND Advanced Practice Midwife
DX: O47.03 False labor before 37 completed weeks of gestation, third trimester (principal); Z3A.36 36 weeks gestation of pregnancy; O34.211 Maternal care for low transverse scar from previous cesarean delivery; Z87.51 Personal history of pre-term labor; O99.013 Anemia complicating pregnancy, third trimester; D64.9 Anemia, unspecified; O99.613 Diseases of the digestive system complicating pregnancy, third trimester; K58.9 Irritable bowel syndrome, unspecified; O26.893 Other specified pregnancy related conditions, third trimester; M79.7 Fibromyalgia; O99.413 Diseases of the circulatory system complicating pregnancy, third trimester; I73.00 Raynaud's syndrome without gangrene; O99.343 Other mental disorders complicating pregnancy, third trimester; F43.10 Post-traumatic stress disorder, unspecified; Z91.410 Personal history of adult physical and sexual abuse; Z91.040 Latex allergy status; Z91.030 Bee allergy status; Z88.8 Allergy status to other drugs, medicaments and biological substances; Z79.899 Other long term (current) drug therapy
CPT/HCPCS: 59025; 96374; 96375; J0595

== ENCOUNTER 2021-02-24 20:58 | Outpatient (CLI) | payer OTHER ==
[~2021-02-24 20:58] MED LIST changes: +ACET325C5 PO
== END 2021-02-24 22:00 | disposition home or self-care (01) ==
LOC: M LDO 20:58
PROVIDERS: ATTEND Advanced Practice Midwife
DX: O47.1 False labor at or after 37 completed weeks of gestation (principal); Z3A.37 37 weeks gestation of pregnancy; O34.211 Maternal care for low transverse scar from previous cesarean delivery; Z87.51 Personal history of pre-term labor; O99.343 Other mental disorders complicating pregnancy, third trimester; F43.10 Post-traumatic stress disorder, unspecified; Z88.8 Allergy status to other drugs, medicaments and biological substances; Z91.040 Latex allergy status; Z91.030 Bee allergy status; Z79.899 Other long term (current) drug therapy; O99.413 Diseases of the circulatory system complicating pregnancy, third trimester; I73.00 Raynaud's syndrome without gangrene; O26.891 Other specified pregnancy related conditions, first trimester; M79.7 Fibromyalgia

== ENCOUNTER 2021-02-26 16:41 | Outpatient (CLI) | payer OTHER ==
[~2021-02-26] VITALS: Ht 152.4 cm; Wt 63.6 kg
[2021-02-26 16:53] VITALS: BP 114/81
--- NOTE | 2021-02-26 18:31 | REP ---
INDICATION: r/o SROM COMPARISON: 01/20/2021 TECHNIQUE: Transabdominal obstetrical ultrasound with color Doppler evaluation. FINDINGS: Examination demonstrates a single live intrauterine in cephalic presentation. motion is identified by technologist. Placenta is noted fundal and grade 2 without evidence for placenta previa or abruption. Amniotic fluid volume is normal. Cervix measures 2.6 cm in length and appears closed. No funneling or cervical fluid noted. Selected gestational age: 36 weeks 2 days with YUSEF 03/24/2021. FHR equals 171 beats per minute. MAGDY: 12.0 cm (7.6-24.8) Umbilical artery SD ratio: 2.07 (1.63-3.49) IMPRESSION: Single live advanced gestation in cephalic presentation. Amniotic fluid volume is normal. Closed cervix is shortened to 2.6 cm. <Electronically signed by [place] > 02/26/21 [id number]
[2021-02-26 19:18] VITALS: BP 114/66
[2021-02-26] MEDS ORDERED: LACTATED RINGER'S 1000 ML IV ONE (19:45)
[2021-02-26] MEDS ORDERED: ONDANSETRON 4MG/2ML VIAL IV ONE (19:45)
--- NOTE | 2021-02-26 19:47 | IPNPDOC ---
Text Note Date of Service The patient was seen on 02/26/21. NOTE Outpatient 31yo YUSEF 03/17/2021 presents @ 37 wks with reports of leakage of fluid since 0230 with onset of UC later in the morning. Denies bleeding Cat I tracing. UC mild, 3-5 minutes x 45-60 seconds Spec exam neg pool, neg valsalva, neg nitrazine, neg fern SVE 2/80/-2 MAGDY ordered. VS,Fishbone, I+O VS, Fishbone, I+O Vital Signs Date Time Temp Pulse Resp B/P (MAP) Pulse Ox O2 Delivery O2 Flow Rate FiO2 02/26/21 16:53 98.6 94 20 114/81 (92) Danielle Smith Feb 26, 2021 17:40
--- NOTE | 2021-02-26 19:49 | IPNPDOC ---
Text Note Date of Service The patient was seen on 02/26/21. NOTE Outpatient MAGDY 12 Cat I tracing UC 2-5 minutes x 45-60 seconds SVE /-1, well applied Dr Ruiz updated. VS,Fishbone, I+O VS, Fishbone, I+O Vital Signs Date Time Temp Pulse Resp B/P (MAP) Pulse Ox O2 Delivery O2 Flow Rate FiO2 02/26/21 16:53 98.6 94 20 114/81 (92) Danielle Smith Feb 26, 2021 19:49
--- NOTE | 2021-02-26 20:36 | IPNPDOC ---
Text Note Date of Service The patient was seen on 02/26/21. NOTE Outpatient Pt declines IV fluids at this time Desires discharge Cat I tracing SVE unchanged After hours access, MALIKA, daily FKC, warning reviewed. Keep appt next week VS,Fishbone, I+O VS, Fishbone, I+O Vital Signs Date Time Temp Pulse Resp B/P (MAP) Pulse Ox O2 Delivery O2 Flow Rate FiO2 02/26/21 19:18 98.2 81 18 114/66 (82) 98 Room Air Danielle Smith CNM Feb 26, 2021 20:36
== END 2021-02-26 20:40 | disposition home or self-care (01) ==
LOC: M LDO 16:41
PROVIDERS: ATTEND Advanced Practice Midwife
DX: O47.1 False labor at or after 37 completed weeks of gestation (principal); Z3A.37 37 weeks gestation of pregnancy; Z91.040 Latex allergy status; Z91.030 Bee allergy status; Z88.8 Allergy status to other drugs, medicaments and biological substances; Z79.899 Other long term (current) drug therapy

== ENCOUNTER 2021-02-28 12:50 | Inpatient (IN) | payer OTHER ==
[~2021-02-28] VITALS: Ht 152.4 cm; Wt 64.0 kg
[2021-02-28] VITALS (12 sets, daily range): BP systolic 102–146; BP diastolic 66–94
[2021-02-28] MEDS ORDERED: ACET25TA12 PO (13:11)
[2021-02-28] MEDS ORDERED: ALBU0.63 NEB (13:14)
[2021-02-28 18:18] LABS: GC DNA AMPLIFICATION NEGATIVE (NEGATIVE)
[2021-02-28 18:23] LABS: BASO % 0.2 % (0.0-1.0); EOS # 0.1 10^3/uL (0.0-0.5); EOS % 0.7 % (0.0-3.0); HEMATOCRIT 35.3 % (36.0-47.0); HEMOGLOBIN 11.4 g/dl (12.0-15.5); LYMPH # 1.7 10^3/uL (1.5-5.0); MEAN CORPUSCULAR HEMOGLOBIN 29.6 pg (27.0-33.0); MEAN CORPUSCULAR HGB CONC 32.3 g/dl (32.0-36.5); MEAN CORPUSCULAR VOLUME 91.7 fl (80.0-96.0); MONO # 0.7 10^3/uL (0.0-0.8); MONO % 8.5 % (2.0-8.0); NEUTROPHILS # 6.1 10^3/uL (1.5-8.5); NEUTROPHILS % 69.9 % (36.0-66.0); PLATELET COUNT, AUTOMATED 213 10^3/uL (150-450); RED BLOOD COUNT 3.85 10^6/uL (4.00-5.40); WHITE BLOOD COUNT 8.7 10^3/uL (4.0-10.0)
[2021-02-28] MEDS ORDERED: LACTATED RINGER'S 1000 ML IV STA (18:31)
[2021-02-28] MEDS ORDERED: ceFAZolin SOD 2 GM in IV 1 EA IV ONE (18:35)
[2021-02-28] MEDS ORDERED: ONDANSETRON 4 MG TAB PO PRN (18:35)
[2021-02-28] MEDS ORDERED: BICITRA 30ML SOLN UDC PO ONE (18:35)
[2021-02-28] MEDS ORDERED: LR 1,000 ML IV SCH (18:35)
--- NOTE | 2021-02-28 18:51 | HPEPDOC ---
Obstetrical History & Physical General Date of Admission Feb 28, 2021 at 18:26 History of Present Illness 31 yo female at 37 4/7 weeks gestation by 12 week ultrasound (EDC=03/17/2021) presents with regular contractions for the past few days. They became more intense today. She had a small amount of bleeding. She had a small amount of leakage of fluid. This is her 11th visit to triage for contractions over the past 4-5 weeks. Information Provided By: Patient Age: 31 : 2 Term: 1 Pre-term: 0 Abortions: 0 Livin Care Care: Good Care Dating Final EDC: Mar 17, 2021 Final EDC by: 1st trimester (US) Past Medical History Past Obstetrical History : Past Obstetrical History: Multigravida Past Medical History Medical History OB hx: 06/06 2019: 34 5/7 weeks PPROM section Med hx: 1. Kidney stones 2. ischemic colitis 3. IBS 4. fibromyalgia 5. Raynaud's disease 6. PTSD 7. unspecified autoimmune disorder surgical hx: 1. section 2. APPY 3. hernia repair 4. left subclavian infusaport 5. laparoscopic ovarian cystectomy 6. anal surgery 7. CCY 8. multiple colonoscopies 9. renal stent placement Family History Family History Unknown: Pt adopted Social History Marital Status: Family situation: Spouse/partner home Psychosocial History: PTSD * Smoker: non-smoker Alcohol: Denies Allergies Coded Allergies: bee venom protein (honey bee) (Verified Allergy, Severe, Anaphylaxis , 02/24/21) Latex, Natural Rubber (Verified Allergy, Mild, itching, condoms only per pt, 02/24/21) TAPE (Verified Allergy, Unknown, steristrips, glue, 02/24/21) hydromorphone (Verified Adverse Reaction, Intermediate, projectile vomiting, 02/24/21) ondansetron (Verified Adverse Reaction, Mild, vomiting, 02/24/21) (dissolvable zofran) Medications Scheduled Duloxetine Hcl (Duloxetine HCl) 60 Mg Capsule.dr, 60 MG PO QHS Famotidine (Famotidine) 40 Mg Tablet, 40 MG PO BID Multivitamin (Multivitamin) 1 Each Tablet, 2 TABS PO DAILY Scheduled PRN Acetaminophen (Tylenol) 325 Mg Capsule, 100 MG PO Q6HP PRN for MILD DISCOMFORT Acetaminophen/Diphenhydramine (Acetaminophen Pm Caplet) 1 Each Tablet, 2 TAB PO QHSP PRN for MILD DISCOMFORT Albuterol Sulfate (Albuterol Sulfate) 0.63 Mg/3 Ml Vial.neb, 1 DOSE NEB Q4HP PRN for SHORTNESS OF BREATH Epinephrine (Epinephrine) 0.3 Mg/0.3 Ml Auto.injct, 0.3 ML IM ASDIRECTED PRN for ANAPHYLAXIS Ondansetron HCl (Zofran) 4 Mg Tablet, 8 MG PO Q8HP PRN for NAUSEA Physical Examination Physical Examination GENERAL: Alert and oriented times three. BREAST: . ABDOMEN: Gravid and non-tender to touch. FETUS: Is vertex (VTX) by sterile vaginal examination (SVE), fetus is vertex (VTX) by Joe. HEART RATE: Regular rate and rhythm. LUNGS: Clear to auscultation (CTA). EXTREMITIES: No edema. No clonus. Deep tendon reflexes (DTRs) + . Vital Signs/I&O Vital Signs Date Time Temp Pulse Resp B/P (MAP) Pulse Ox O2 Delivery O2 Flow Rate FiO2 02/28/21 17:55 97.9 16 99 Room Air 02/28/21 17:52 80 128/78 (95) Laboratory Data 24H LABS Laboratory Tests 2 02/28/21 16:39: Chlamydia trachomatis DNA (MIKALA) NEGATIVE, Neisseria gonorrhoeae DNA (MIKALA) NEGATIVE 02/28/21 17:24: Immature Granulocyte % (Auto) 0.7, Neutrophils (%) (Auto) 69.9H, Lymphocytes (%) (Auto) 20.0L, Monocytes (%) (Auto) 8.5H, Eosinophils (%) (Auto) 0.7, Basophils (%) (Auto) 0.2, Neutrophils # (Auto) 6.1, Lymphocytes # (Auto) 1.7, Monocytes # (Auto) 0.7, Eosinophils # (Auto) 0.1, Basophils # (Auto) 0.0, Nucleated Red Blood Cells % (auto) 0.0 CBC/BMP Laboratory Tests 02/28/21 17:24 Pertinent Laboratoy Data Blood Type: A+ Steroid Therapy Steroid Therapy: Yes Vaginal Examination Dilation: 3 cm Effacement: 100% Station: -1 Cervical Consistency: Soft Cervical Position: Middle Presentation: Cephalic presentation Assessment Variability: Moderate Accelerations: Positive Decelerations: None Tocometer Contractions: Yes Frequency: regular Assessment/Plan Assessment Pt is a 31-year-old (G)2 para (P)0101 at 37+4 weeks by 12-week ultr asound presents in early labor; h/o prior section. Plan Admit and orient. Content Curator and consent. Diet: reg.. Plan to proceed with repeat and TL Consent obtained GRETA SHORT MD Feb 28, 2021 18:51
[2021-02-28] MEDS ORDERED: MORPHINE PRES-FREE INJ 10 MG/10 ML VIAL (J2274) As Ordered ONE (19:35)
[2021-02-28] MEDS ORDERED: PHENYLephrine 500MCG 5ML (100MCG/ML) SYRINGE As Ordered ONE (19:40)
[2021-02-28] MEDS ORDERED: ePHEDrine SULFATE 25 MG/5 ML(5MG/ML) SYRINGE As Ordered ONE (19:40)
[2021-02-28] MEDS ORDERED: ONDANSETRON 4MG/2ML VIAL As Ordered ONE ×4 (19:40→21:19)
[2021-02-28] MEDS ORDERED: OXYTOCIN 30 UNITS IN 0.9% NaCl 500ML IV BAG (J2590) As Ordered ONE ×2 (19:40→20:53)
[2021-02-28] MEDS ORDERED: KETOROLAC 60MG 2ML VIAL As Ordered ONE (19:41)
[2021-02-28] MEDS ORDERED: NALOXONE INJ 0.4MG/1ML VIAL (J2310 PER 1MG) IV PRN ×2 (19:48)
[2021-02-28] MEDS ORDERED: ONDANSETRON 4MG/2ML VIAL IV PRN ×2 (19:48→21:15)
[2021-02-28] MEDS ORDERED: NALBUPHINE HCL 10 MG/ML AMP (J2300) IV PRN (19:48)
[2021-02-28] MEDS ORDERED: DOCUSATE SODIUM 100MG CAPSULE PO PRN (20:55)
[2021-02-28] MEDS ORDERED: OXYTOCIN DRIP 30 UNITS in IV 1 EA IV SCH (20:55)
[2021-02-28] MEDS ORDERED: PERCOCET 5MG/325MG TAB PO PRN ×2 (20:55)
[2021-02-28] MEDS ORDERED: RHOGAM 300 MCG (1500 IU) INJ (J2790) IM SCH (20:55)
[2021-02-28] MEDS ORDERED: MEASLES,MUMPS,RUBELLA VACCINE INJ (MMR-II) (90707) SC SCH (20:55)
[2021-02-28] MEDS ORDERED: SIMETHICONE 80MG CHEW TAB PO PRN (20:55)
[2021-02-28] MEDS ORDERED: DULoxetine 30 MG CAP (CYMBALTA) PO SCH (21:00)
[2021-02-28] MEDS ORDERED: FAMOTIDINE 20 MG TAB PO SCH (21:00)
--- NOTE | 2021-02-28 21:01 | ROOPDOC ---
[facility] Report Of Operation Report of Operation DATE OF PROCEDURE: 02/28/21 Report of operation Preoperative diagnosis: 37 4/7 weeks, prior section, labor Postoperative diagnosis: Same Procedure: Repeat low transverse section and bilateral tubal ligation. Surgeon: Greta Short M.D. EBL: 500 ml. Urine output: 100 mL's. Findings: 6 lbs. 0 oz. female , 's 9 and 9 g normal uterus, fallopian tubes, ovaries. Operative summary: Patient taken to the operating room where spinal anesthesia was induced. She was prepped draped in a sterile fashion in the supine position. A Contreras catheter was placed. A Pfannenstiel skin incision was made with scalpel. Fascia was incised and extended bilaterally. The peritoneal cavity was entered. A Mobius retractor was placed. A bladder flap was created. A curvilinear incision was made in lower uterine segment until Clear fluid was noted. The incision was extended manually. The infant was delivered from the vertex positio n without difficulty. Cord was doubly clamped and cut. The was handed to awaiting nurses. The placenta was expressed. Uterus was closed with O-Vicryl in a running locked fashion. A second imbricating layer of Vicryl was placed. Attention was turned to the fallopian tubes. A [place] clamp was used to grasp the fallopian tubes at the midportion.. A window was created in the broad ligament free tie of 2-0 chromic was placed around the segment of tube on either side of the clamp. A Segment of tube was excised bilaterally and sent to pathology. Peritoneum was closed with 2-0 Vicryl a running fashion. Fascia was closed with 0 Vicryl in running fashion. Skin was closed 4-0 Monocryl subcuticular sutures. Sponge, instrument and needle counts were correct. GRETA SHORT MD Feb 28, 2021 21:01
[2021-02-28] MEDS ORDERED: oxyCODONE 5MG TAB PO PRN (21:05)
[2021-02-28] MEDS ORDERED: fentaNYL 100 MCG/2 ML INJECTION (J3010) IV PRN (21:05)
[2021-02-28] MEDS: diphenhydrAMINE 50MG/ML VIAL (J1200) IV PRN (23:17)
[2021-02-28] MEDS: METOCLOPRAMIDE INJ 10MG/2ML VIAL (J2765 PER 1) IV PRN (23:30)
[2021-03-01] VITALS (7 sets, daily range): BP systolic 109–133; BP diastolic 61–84
[2021-03-01] MEDS: LR 1,000 ML IV SCH ×2 (00:45→06:28)
[2021-03-01] MEDS: KETOROLAC 30 MG/ML 1ML VIAL IV SCH ×3 (01:51→13:36)
[2021-03-01] MEDS ORDERED: IBUP80TA PO (05:03)
[2021-03-01] MEDS ORDERED: OXYC1TAB23 PO (05:03)
[2021-03-01] MEDS: diphenhydrAMINE 50MG/ML VIAL (J1200) IV PRN (05:31)
[2021-03-01] MEDS: ONDANSETRON 4MG/2ML VIAL IV PRN ×2 (06:28→18:47)
[2021-03-01 06:56] LABS: HEMATOCRIT 27.5 % (36.0-47.0); MEAN CORPUSCULAR HEMOGLOBIN 30.5 pg (27.0-33.0); MEAN CORPUSCULAR HGB CONC 33.5 g/dl (32.0-36.5); MEAN CORPUSCULAR VOLUME 91.1 fl (80.0-96.0); PLATELET COUNT, AUTOMATED 169 10^3/uL (150-450); RED BLOOD COUNT 3.02 10^6/uL (4.00-5.40); WHITE BLOOD COUNT 10.1 10^3/uL (4.0-10.0)
[2021-03-01 07:17] LABS: HEMOGLOBIN 9.2 g/dl (12.0-15.5)
[2021-03-01] MEDS: PRENATAL VITAMINS CHEWABLE TABLET PO SCH (08:03)
--- NOTE | 2021-03-01 11:14 | IPNPDOC ---
Progress Note Date of Service: Mar 01, 2021 Day#: 1 Progress Note SUBJECT: Niurka is a 31-year-old female who had a repeat section at 37+ weeks due to active labor and request for a repeat. Her moe catheter is out and she has been able to void without any issues. She has ambulated minimally today. Ambulation encouraged. Her IV has been locked. She has been tolerating a regular diet. She does reports some itching and some nausea at times. She and are bonding well with the . OBJECTIVE: VITAL SIGNS: Within normal limits, afebrile. Alert and oriented times three. Sitting up in bed. Respiratory: Regular rate without use of accessory muscles. Abdomen: Fundus firm at U. Dressing intact with 2 small areas of blood noted on dressing. Minimal lochia. ASSESSMENT: Day 1 postoperative PLAN: 1. Continue supportive nursing care. 2. Patient to ambulate and to shower later today. 3. May have saline lock out after last dose of Toradol. 4. Anticipate discharge to home tomorrow. VS, I&O, 24H, Reidbone Vital Signs/I&O Vital Signs Date Time Temp Pulse Resp B/P (MAP) Pulse Ox O2 Delivery O2 Flow Rate FiO2 03/01/21 10:00 97.3 83 18 109/61 (77) 98 Room Air I&O- Last 24 Hours up to 6 AM 03/01/21 06:00 Intake Total 500 ml Output Total 900 ml Balance -400 ml Laboratory Data 24H LABS Laboratory Tests 2 02/28/21 16:39: Chlamydia trachomatis DNA (MIKALA) NEGATIVE, Neisseria gonorrhoeae DNA (MIKALA) NEGATIVE 02/28/21 17:24: Immature Granulocyte % (Auto) 0.7, Neutrophils (%) (Auto) 69.9H, Lymphocytes (%) (Auto) 20.0L, Monocytes (%) (Auto) 8.5H, Eosinophils (%) (Auto) 0.7, Basophils (%) (Auto) 0.2, Neutrophils # (Auto) 6.1, Lymphocytes # (Auto) 1.7, Monocytes # (Auto) 0.7, Eosinophils # (Auto) 0.1, Basophils # (Auto) 0.0, Nucleated Red Blood Cells % (auto) 0.0, HIV (1&2) Antibody NEGATIVE, HIV P24 Antigen NEGATIVE 03/01/21 06:24: Nucleated Red Blood Cells % (auto) 0.0 CBC/BMP Laboratory Tests 02/28/21 17:24 03/01/21 06:24 UGO YOUNGBLOOD Mar 01, 2021 11:14
[2021-03-01] MEDS: METOCLOPRAMIDE INJ 10MG/2ML VIAL (J2765 PER 1) IV PRN (13:36)
[2021-03-01] MEDS: ONDANSETRON 4 MG TAB PO PRN (19:28)
[2021-03-01] MEDS: IBUPROFEN 800 MG TAB PO SCH (21:07)
[2021-03-01] MEDS ORDERED: PROMETHAZINE 25MG SUPP PR PRN (21:15)
[2021-03-01] MEDS ORDERED: diphenhydrAMINE 50MG CAP PO PRN (21:15)
[2021-03-01] MEDS ORDERED: diphenhydrAMINE 25MG CAP PO PRN (21:30)
[2021-03-01] MEDS: FAMOTIDINE 20 MG TAB PO SCH (22:21)
[2021-03-01] MEDS: DULoxetine 30 MG CAP (CYMBALTA) PO SCH (22:21)
[2021-03-02] MEDS: ACETAMINOPHEN 500 MG TAB PO PRN ×3 (01:47→19:38)
[2021-03-02 02:00] VITALS: BP 145/98
[2021-03-02] MEDS: IBUPROFEN 800 MG TAB PO SCH ×3 (05:13→21:47)
[2021-03-02 06:00] VITALS: BP 118/77
--- NOTE | 2021-03-02 08:09 | IPNPDOC ---
Progress Note Date of Service: Mar 02, 2021 Day#: 2 Progress Note SUBJECT: Niurka is a 31-year-old female who had a repeat section 2 days ago when she came in to the hospital in active labor. She reported nausea, itching, and pain, which have all improved. Patient is refusing Percocet and only alternating Motrin and Tylenol. She and have not had the baby in the room at night. Recommend she stay due to this and to make sure her pain is under control before she goes home. Patient and amenable to recomme ndation. She has been ambulating without dizziness, eating a regular diet and voiding. OBJECTIVE: VITAL SIGNS: Within normal limits, afebrile. Alert and oriented times three. Sitting up in chair and . Respiratory: regular rate without use of accessory muscles. Abdomen: Fundus firm. Dressing intact. Two areas that are small on dressing that have bled through. Minimal lochia. ASSESSMENT: Day 2 postoperative PLAN: 1. Continue supportive nursing care. 2. Patient to ambulate and shower today as she didn't do so yesterday. 3. Anticipate discharge to home tomorrow. VS, I&O, 24H, Fishbone Vital Signs/I&O Vital Signs Date Time Temp Pulse Resp B/P (MAP) Pulse Ox O2 Delivery O2 Flow Rate FiO2 03/02/21 06:00 97.9 78 18 118/77 (91) 96 Room Air I&O- Last 24 Hours up to 6 AM 03/02/21 05:59 Intake Total 1000 ml Output Total 375 ml Balance 625 ml Laboratory Data 24H LABS Laboratory Tests 2 03/01/21 15:03: Serology Scanned Report Hepatitis B Testing UGO YOUNGBLOOD CNM Mar 02, 2021 08:09
[2021-03-02] MEDS: PRENATAL VITAMINS CHEWABLE TABLET PO SCH (09:00)
[2021-03-02] MEDS: FAMOTIDINE 20 MG TAB PO SCH ×2 (09:00→21:47)
[2021-03-02 10:00] VITALS: BP 134/88
[2021-03-02 14:00] VITALS: BP 131/75
[2021-03-02 18:00] VITALS: BP 135/93
[2021-03-02] MEDS: DULoxetine 30 MG CAP (CYMBALTA) PO SCH (21:48)
[2021-03-02] MEDS: ONDANSETRON 4 MG TAB PO PRN (21:48)
[2021-03-02 22:00] VITALS: BP 135/90
[2021-03-03 02:00] VITALS: BP 132/75
[2021-03-03] MEDS: ACETAMINOPHEN 500 MG TAB PO PRN (03:36)
[2021-03-03 06:00] VITALS: BP 137/84
[2021-03-03] MEDS: ONDANSETRON 4 MG TAB PO PRN (06:07)
[2021-03-03] MEDS: IBUPROFEN 800 MG TAB PO SCH (06:07)
[2021-03-03] MEDS: PRENATAL VITAMINS CHEWABLE TABLET PO SCH (08:33)
[2021-03-03] MEDS: FAMOTIDINE 20 MG TAB PO SCH (08:33)
--- NOTE | 2021-03-03 09:06 | IPNPDOC ---
Progress Note Date of Service: Mar 03, 2021 Day#: 3 Progress Note POD 3 SUBJECT: Niurka is a 31yo [id number] s/p uncomplicated RLTCS with BTL for latent labor in the setting of prior section and satisfied parity, doing well day # 3. Pain well controlled now on oral meds. She has been ambulating, voiding spontaneously without issue and tolerating regular diet. Breast feeding without issue. Reports lochia is like a normal period. No f/c/n/v/CP/SOB. OBJECTIVE: VITAL SIGNS: Within normal limits, afebrile. Alert and oriented times three. Abdomen: Fundus firm at U-2. Soft, appropriately tender to palpation with NO rebound/guarding. Pfannenstiel incision covered by dry clean optifoam dressing (two small dime sized areas of strike through noted) Extremities: no pain with palpation of calves Labs: pre-op H/H: 11.4/35.3 post-op H/H: 9.2/27.5 ASSESSMENT: Niurka is a 31yo [id number] s/p uncomplicated RLTCS with BTL for latent labor in the setting of prior section and satisfied parity, doing well day # 3. Vitals within normal limits, afebrile, hemodynamically stable with no evidence of infection. PLAN: 1. Discharge to home today. 2. Percocet and Motrin for pain. Colace for bowel regimen. 3. Encourage breast feeding and ambulation. 4. Regular diet 5. Routine post-op visit in 2 weeks for incision check 6. Discussed return precautions at length. 7. No heavy lifting, vaginal rest Irlanda De La Rosa MD VS, I&O, 24H, Fishbone Vital Signs/I&O Vital Signs Date Time Temp Pulse Resp B/P (MAP) Pulse Ox O2 Delivery O2 Flow Rate FiO2 03/03/21 06:00 98.4 71 16 137/84 (101) 97 Room Air Irlanda De La Rosa MD Mar 03, 2021 09:06
[2021-03-03] MEDS ORDERED: DOK1CAP7 PO (09:12)
--- NOTE | 2021-03-03 09:21 | DS.PDOC ---
Discharge Summary General Date of Admission Feb 28, 2021 at 18:26 Date of Discharge Mar 03, 2021 Discharge Summary PROCEDURES PERFORMED DURING STAY: RLTCS with BTL ADMITTING DIAGNOSES: 1. Labor with history of prior section, satisfied parity DISCHARGE DIAGNOSES: 1. labor with history of prior section, satisfied parity s/p RLTCS with BTL COMPLICATIONS/CHIEF COMPLAINT: LABOR. HISTORY OF PRESENT ILLNESS/HOSPITAL COURSE: Niurka is a 31yo [id number] s/p uncomplicated RLTCS with BTL for latent labor in the setting of prior section and satisfied parity, doing well day # 3. She had a benign course. Vitals within normal limits, afebrile, hemodynamically stable with no evidence of infection. DISCHARGE MEDICATIONS: Please see below. ALLERGIES: Please see below. PHYSICAL EXAMINATION ON DISCHARGE: VITAL SIGNS: Within normal limits, afebrile. Alert and oriented times three. Abdomen: Fundus firm at U-2. Soft, appropriately tender to palpation with NO rebound/guarding. Pfannenstiel incision covered by dry clean optifoam dressing (two small dime sized areas of strike through noted) Extremities: no pain with palpation of calves LABORATORY DATA: Please see below. pre-op H/H: 11.4/35.3 post-op H/H: 9.2/27.5 DISCHARGE PLAN/INSTRUCTIONS: 1. Discharge to home today. 2. Percocet and Motrin for pain. Colace for bowel regimen. 3. Encourage breast feeding and ambulation. 4. Regular diet 5. Routine post-op visit in 2 weeks for incision check 6. Discussed return precautions at length. 7. No heavy lifting, vaginal rest DISCHARGE CONDITION: Stable TIME SPENT ON DISCHARGE: Greater than 20 minutes. Irlanda De La Rosa MD Vital Signs/I&Os Vital Signs Date Time Temp Pulse Resp B/P (MAP) Pulse Ox O2 Delivery O2 Flow Rate FiO2 03/03/21 06:00 98.4 71 16 137/84 (101) 97 Room Air Discharge Medications Scheduled Duloxetine Hcl (Duloxetine HCl) 60 Mg Capsule.dr, 60 MG PO QHS, (Reported) Famotidine (Famotidine) 40 Mg Tablet, 40 MG PO BID, (Reported) Ibuprofen (Ibuprofen) 800 Mg Tablet, 800 MG PO Q8H Multivitamin (Multivitamin) 1 Each Tablet, 2 TABS PO DAILY, (Reported) Scheduled PRN Albuterol Sulfate (Albuterol Sulfate) 0.63 Mg/3 Ml Vial.neb, 1 DOSE NEB Q4HP PRN for SHORTNESS OF BREATH, (Reported) Docusate Sodium (Dok) 100 Mg Capsule, 100 MG PO BIDP PRN for CONSTIPATION Epinephrine (Epinephrine) 0.3 Mg/0.3 Ml Auto.injct, 0.3 ML IM ASDIRECTED PRN for ANAPHYLAXIS, (Reported) Ondansetron HCl (Zofran) 4 Mg Tablet, 8 MG PO Q8HP PRN for NAUSEA, (Reported) Oxycodone HCl/Acetaminophen (Oxycodone-Acetaminophen 5-325) 1 Each Tablet, 1 TAB PO TIDP PRN for pain Allergies Coded Allergies: bee venom protein (honey bee) (Verified Allergy, Severe, Anaphylaxis , 02/24/21) Latex, Natural Rubber (Verified Allergy, Mild, itching, condoms only per pt, 02/24/21) TAPE (Verified Allergy, Unknown, steristrips, glue, 02/24/21) hydromorphone (Verified Adverse Reaction, Intermediate, projectile vomiting, 02/24/21) ondansetron (Verified Adverse Reaction, Mild, vomiting, 02/24/21) (dissolvable zofran) Irlanda De La Rosa MD Mar 03, 2021 09:21
== END 2021-03-03 12:10 | disposition home or self-care (01) | DRG 540 ==
LOC: M LDO 12:50 → M LDI 18:26 → M OBS 22:30
PROVIDERS: ADMIT Specialist; ATTEND Specialist
PROC: 0UB70ZZ Excision of Bilateral Fallopian Tubes, Open Approach (ICD-10-PCS; 2021-02-28)
PROC: 10D00Z1 Extraction of Products of Conception, Low, Open Approach (ICD-10-PCS; principal; 2021-02-28 19:30)
DX: O34.211 Maternal care for low transverse scar from previous cesarean delivery (principal); F43.10 Post-traumatic stress disorder, unspecified; Z3A.37 37 weeks gestation of pregnancy; O99.344 Other mental disorders complicating childbirth; Z37.0 Single live birth; O75.82 Onset (spontaneous) of labor after 37 completed weeks of gestation but before 39 completed weeks gestation, with delivery by (planned) cesarean section; Z30.2 Encounter for sterilization

== ENCOUNTER → 2021-03-31 | Outpatient (CLI) | payer OTHER ==
[~2021-03-31] MED LIST changes: +ACET25TA12 PO; +ALBU0.63 NEB; +DOK1CAP7 PO
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
== END ==
LOC: M PAIN 11:30
PROVIDERS: ATTEND Family Medicine
DX: M79.7 Fibromyalgia (principal); F43.10 Post-traumatic stress disorder, unspecified; K58.9 Irritable bowel syndrome, unspecified; F41.9 Anxiety disorder, unspecified; F32.9 Major depressive disorder, single episode, unspecified; J45.909 Unspecified asthma, uncomplicated; K21.9 Gastro-esophageal reflux disease without esophagitis; Z79.891 Long term (current) use of opiate analgesic; Z79.899 Other long term (current) drug therapy; Z88.8 Allergy status to other drugs, medicaments and biological substances; Z91.040 Latex allergy status; Z91.030 Bee allergy status; Z91.048 Other nonmedicinal substance allergy status

== ENCOUNTER → 2021-08-11 | Outpatient (CLI) | payer OTHER ==
[~2021-08-11] MED LIST changes: -CYMB60CA3 PO; +CYMB60CA4 PO; +DOK1CAP4 PO; -DOK1CAP7 PO
== END ==
LOC: M TMPAIN 14:00 → M PAIN 14:00
PROVIDERS: ATTEND Anesthesiology
DX: G89.29 Other chronic pain (principal); M54.50 Low back pain, unspecified; M79.7 Fibromyalgia; F41.9 Anxiety disorder, unspecified; F32.A Depression, unspecified; J45.909 Unspecified asthma, uncomplicated; K58.9 Irritable bowel syndrome, unspecified; F43.10 Post-traumatic stress disorder, unspecified; K21.9 Gastro-esophageal reflux disease without esophagitis; G47.00 Insomnia, unspecified; Z79.899 Other long term (current) drug therapy; Z91.040 Latex allergy status; Z88.5 Allergy status to narcotic agent; Z91.030 Bee allergy status; Z88.8 Allergy status to other drugs, medicaments and biological substances; Z91.048 Other nonmedicinal substance allergy status

== ENCOUNTER → 2021-08-30 | Outpatient (CLI) | payer OTHER | LOC: M PAIN 15:15 | PROVIDERS: ATTEND Anesthesiology | DX: M54.50 Low back pain, unspecified (principal); M79.18 Myalgia, other site; M79.7 Fibromyalgia; F41.9 Anxiety disorder, unspecified; F32.A Depression, unspecified; J45.909 Unspecified asthma, uncomplicated; K58.9 Irritable bowel syndrome, unspecified; G47.00 Insomnia, unspecified; K21.9 Gastro-esophageal reflux disease without esophagitis; Z79.891 Long term (current) use of opiate analgesic; Z79.899 Other long term (current) drug therapy; Z88.8 Allergy status to other drugs, medicaments and biological substances; Z91.040 Latex allergy status; Z91.030 Bee allergy status; Z91.048 Other nonmedicinal substance allergy status ==

== ENCOUNTER 2021-09-09 16:29 | Emergency (ER) | payer OTHER ==
[~2021-09-09] VITALS: Ht 152.4 cm; Wt 46.3 kg
[~2021-09-09 16:29] MED LIST changes: +ONDA-84 PO; -ONDA8TAB10 PO
[2021-09-09 16:31] VITALS: BP 144/92
== END 2021-09-09 16:45 | disposition left against medical advice (07) ==
LOC: M ED 16:29
DX: Z53.21 Procedure and treatment not carried out due to patient leaving prior to being seen by health care provider (principal)

== ENCOUNTER → 2021-10-07 | Outpatient (CLI) | payer OTHER | LOC: M PLAIMG 10:26 | PROVIDERS: ATTEND Anesthesiology | DX: M54.59 Other low back pain (principal) ==

== ENCOUNTER → 2021-10-07 | Outpatient (CLI) | payer OTHER | LOC: M PAIN 14:00 | PROVIDERS: ATTEND Nurse Practitioner Family | DX: M79.10 Myalgia, unspecified site (principal); M54.50 Low back pain, unspecified; M79.18 Myalgia, other site; M79.7 Fibromyalgia; K58.9 Irritable bowel syndrome, unspecified; F41.9 Anxiety disorder, unspecified; F32.A Depression, unspecified; F43.10 Post-traumatic stress disorder, unspecified; K21.9 Gastro-esophageal reflux disease without esophagitis; Z79.899 Other long term (current) drug therapy; Z91.030 Bee allergy status; Z91.040 Latex allergy status; Z91.048 Other nonmedicinal substance allergy status; Z88.8 Allergy status to other drugs, medicaments and biological substances ==

== ENCOUNTER → 2022-09-15 | Outpatient (CLI) | payer OTHER ==
[~2022-09-15] MED LIST changes: +ALBU2.5V10 NEB; -ALBU83IN NEB
[2022-09-15 18:28] LABS: APPEARANCE, URINE MANUAL CLEAR (CLEAR); BILIRUBIN, URINE MANUAL NEGATIVE (NEGATIVE); BLOOD URINE MANUAL POSITIVE (NEGATIVE); COLOR, URINE MANUAL YELLOW (YELLOW); GLUCOSE, URINE (UA) MANUAL NEGATIVE (NEGATIVE); KETONE, URINE MANUAL NEGATIVE (NEGATIVE); LEUKOCYTE ESTERASE, URINE MAN TRACE (NEGATIVE); NITRITE, URINE MANUAL NEGATIVE (NEGATIVE); PROTEIN, URINE MANUAL TRACE mg/dL (NEGATIVE); UROBILINOGEN, URINE MANUAL NORMAL (NORMAL)
[2022-09-15 19:48] LABS: MUCUS, URINE MOD AMOUNT (NEGATIVE)
[2022-09-15 19:49] LABS: CALCIUM OXALATE CRYSTALS,URINE MOD AMOUNT /hpf; HYALINE CAST, URINE 0-1 /lpf (0-1); SQUAMOUS EPITHELIAL CELL URINE MOD AMOUNT /hpf (SMALL AMT)
[2022-09-15 19:50] LABS: RBC, URINE 15-20 /hpf (0-3)
[2022-09-15 19:51] LABS: AMORPHOUS SEDIMENT, URINE SMALL AMOUNT (NEGATIVE); BACTERIA, URINE SMALL AMOUNT
== END ==
LOC: M PLAIMG 14:47
PROVIDERS: ATTEND Physician Assistant
DX: R30.0 Dysuria (principal)

== ENCOUNTER → 2022-09-29 | Outpatient (CLI) | payer OTHER | LOC: M PLAIMG 11:12 | PROVIDERS: ATTEND Physician Assistant | DX: N23 Unspecified renal colic (principal) ==

== ENCOUNTER → 2022-12-01 | Outpatient (REF) | payer OTHER | LOC: M LAB REF 17:47 | PROVIDERS: ATTEND Nurse Practitioner Family | DX: Z12.4 Encounter for screening for malignant neoplasm of cervix (principal) ==

== ENCOUNTER → 2022-12-12 | Outpatient (CLI) | payer OTHER ==
[2022-12-12 16:42] LABS: HEPATITIS B SURFACE ANTIGEN NEGATIVE (NEGATIVE)
[2022-12-12 16:55] LABS: HIV 1&2 SCREEN ATELLICA NEGATIVE (NEGATIVE)
[2022-12-12 17:02] LABS: HEPATITIS B CORE ANTIBODY IGM NEGATIVE (NEGATIVE)
[2022-12-12 17:03] LABS: HEPATITIS C VIRUS ABY INDEX < 0.0 INDEX (<0.8)
== END ==
LOC: M RAD 13:30
PROVIDERS: ATTEND Nurse Practitioner Family
DX: Z11.3 Encounter for screening for infections with a predominantly sexual mode of transmission (principal); N94.10 Unspecified dyspareunia; Z12.4 Encounter for screening for malignant neoplasm of cervix

== ENCOUNTER → 2022-12-19 | Outpatient (REF) | payer OTHER | LOC: M SFHCWAGY 15:11 | PROVIDERS: ATTEND Nurse Practitioner Family | DX: Z12.4 Encounter for screening for malignant neoplasm of cervix (principal); R87.615 Unsatisfactory cytologic smear of cervix ==